=== PATIENT | female | born 1950 | race Caucasian/White ===

== ENCOUNTER 2020-03-19 17:05 | Emergency (ER) | payer MEDICARE, OTHER ==
[2020-03-19 17:20] VITALS: PULSE 68
--- NOTE | 2020-03-19 17:20 | ERPHSYRPT ---
- History of Present Illness Time Seen by Provider: 03/19/20 17:20 Source: patient Exam Limitations: no limitations Physician History: This is a right-handed 69-year-old white female who was walking in a nearby park when she slipped on a rock and fell on her left outstretched hand. She has pain in her left wrist. She has no other complaints of injury or pain. Occurred: just prior to arrival Method of Injury: fell Quality: aching Severity of Pain-Max: mild Severity of Pain-Current: mild Extremities Pain Location: wrist: left Modifying Factors: Improves With: movement Associated Symptoms: none Allergies/Adverse Reactions: No Known Drug Allergies Allergy (Verified 03/19/20 17:21) Home Medications: Bisoprolol Fumarate 5 mg PO DAILY 03/19/20 [History] Pravastatin Sodium 40 mg PO DAILY 03/19/20 [History] Travel Risk - International Travel Have you traveled outside of the country in past 3 weeks: No - Coronavirus Screening Are you exhibiting any of the following symptoms?: No Close contact with a COVID-19 positive Pt in past 14-21 Days: No - Review of Systems Constitutional: No Symptoms Eyes: No Symptoms Ears, Nose, & Throat: No Symptoms Respiratory: No Symptoms Cardiac: No Symptoms Abdominal/Gastrointestinal: No Symptoms Genitourinary Symptoms: No Symptoms Musculoskeletal: Fall, Injury (Left wrist) Skin: No Symptoms Neurological: No Symptoms Psychological: No Symptoms Endocrine: No Symptoms Hematologic/Lymphatic: No Symptoms Immunological/Allergic: No Symptoms All Other Systems: Reviewed and Negative - Past Medical History Pertinent Past Medical History: Yes - Past Surgical History Past Surgical History: Yes - Nursing Vital Signs Nursing Vital Signs: Initial Vital Signs Temperature 98.2 F 03/19/20 17:14 Pulse Rate 68 03/19/20 17:14 Respiratory Rate 20 03/19/20 17:14 Blood Pressure 138/74 03/19/20 17:14 O2 Sat by Pulse Oximetry 99 03/19/20 17:14 Pain Scale Pain Intensity 3 - Physical Exam General Appearance: no apparent distress, alert, anxiety Eyes, Ears, Nose, Throat Exam: normal ENT inspection, moist mucous membranes Neck Exam: normal inspection, non-tender, supple, full range of motion Cardiovascular/Respiratory Exam: chest non-tender, no respiratory distress Abdominal Exam: non-tender Back Exam: normal inspection, normal range of motion, No CVA tenderness, No vertebral tenderness Shoulder Exam: normal inspection, non-tender, no evidence of injury, normal ROM Elbow/Forearm Exam: normal inspection, non-tender, no evidence of injury, normal ROM Wrist Exam: bone tenderness, limited ROM, soft tissue tenderness Hand Exam: normal inspection, non-tender, no evidence of injury, normal ROM Neuro/Tendon Exam: normal sensation, normal motor functions, normal tendon functions, responds to pain, no evidence tendon injury Mental Status Exam: alert, oriented x 3, cooperative Skin Exam: normal color, warm, dry SpO2 Interpretation: normal O2 Delivery: Room Air Procedures - Splinting Location of Splint: Left, Wrist Type of Splint: Orthoglass Short Arm Splint Splint Applied By: ED Nurse Pre-Proc Neuro Vasc Exam: normal Post-Proc Neuro Vasc Exam: neurovascular intact, unchanged from pre-exam - Course Nursing assessment & vital signs reviewed: Yes Ordered Tests: Active Orders 24 hr Category Date Time Status WRIST (MIN 3 VIEWS) Stat Exams 03/19/20 17:33 Ordered - Progress Progress: improved, pain not gone completely, re-examined Progress Note: 03/19/20 17:46 X-ray of left wrist reveals a nondisplaced distal radius fracture. Counseled pt/family regarding: diagnosis, need for follow-up, rad results - Departure Departure Disposition: Home Clinical Impression: Distal radius fracture, left Condition: Stable Critical Care Time: No Referrals: NABIL TITUS LABORATORY TECHNOLOGIST [Primary Care Provider] - Additional Instructions: Ice pack to left wrist 3 times a day. Follow-up tomorrow morning at 8:00 at the [facility] orthopedic clinic. Use Tylenol and ibuprofen for pain.
[2020-03-19 18:22] VITALS: BP 134/70; O2SAT 98
--- NOTE | 2020-03-20 08:48 | XRAY ---
Indication: Pain following fall. Comparison: None 3 view left wrist demonstrates nondisplaced cortical fracture distal metadiaphysis radius with soft tissue swelling. Query additional nondisplaced ulnar styloid tip fracture. Elsewhere osteopenia and moderate degenerative changes 1st metacarpal multangular articulation. Comment: No electronic note of findings by the interpreting ER clinician. Telephone report was given to Dr. Conley in the ER at 0837 hrs. on March 20, 2020.
== END 2020-03-19 18:30 | disposition home or self-care (01) ==
LOC: ED 17:05
DX: S52.502A Unspecified fracture of the lower end of left radius, initial encounter for closed fracture (principal); W01.198A Fall on same level from slipping, tripping and stumbling with subsequent striking against other object, initial encounter; Y93.89 Activity, other specified; Y92.9 Unspecified place or not applicable
CPT/HCPCS: 29126; 73110; 99283

== ENCOUNTER 2021-10-22 04:51 | Emergency (ER) | payer MEDICARE, OTHER ==
--- NOTE | 2021-10-22 05:10 | ERPHSYRPT ---
- History of Present Illness Source: patient Exam Limitations: no limitations Timing/Duration: week(s) (1) Activities at Onset: none Quality: other (No chest pain but palpitations) Severity of Pain-Max: none Severity of Pain-Current: none Nitro Today/Relief: no nitro taken today Aspirin Treatment Today: 81 mg x 1, provided at home Associated Symptoms: shortness of breath (Mild), other (Palpitations) Hx Tetanus, Diphtheria Vaccination/Date Given: No Hx Influenza Vaccination/Date Given: No Hx Pneumococcal Vaccination/Date Given: Yes <BAL LEE - Last Filed: 10/22/21 06:46> <ZARINA CONLEY - Last Filed: 10/22/21 08:43> - History of Present Illness Time Seen by Provider: 10/22/21 05:10 Physician History: This is a 71-year-old female who presents with complaint of palpitations and shortness of breath intermittently over the last week. She sees capacity planner Dr. Lind and the capacity planner is aware of her symptoms. It does not appear as though the capacity planner is aware of her heart rate being so high. Patient has an appointment to see her capacity planner tomorrow. She is not on any anticoagulation therapy. She was on bisoprolol but told to stop this medication secondary to her low blood pressure a few days ago. Patient has a history of cardiomyopathy and congestive heart failure. She tried coughing. Upon arrival to the emergency department carotid massage was attempted. This did not help lower her heart rate. Patient states that she is felt the same symptoms all week but she felt pretty good this morning. Patient is not the best historian. She is very forgetful (BAL LEE) Allergies/Adverse Reactions: No Known Drug Allergies Allergy (Verified 10/22/21 05:37) Home Medications: Bisoprolol Fumarate 5 mg PO DAILY 03/19/20 [History] Pravastatin Sodium 40 mg PO DAILY 03/19/20 [History] Aspirin EC 81 mg [Ecotrin 81 mg] 81 mg PO DAILY 10/22/21 [History] Travel Risk - International Travel Have you traveled outside of the country in past 3 weeks: No - Coronavirus Screening Are you exhibiting any of the following symptoms?: No Close contact with a COVID-19 positive Pt in past 14-21 Days: No <BAL LEE - Last Filed: 10/22/21 06:46> - Review of Systems Constitutional: No Symptoms Eyes: No Symptoms Ears, Nose, & Throat: No Symptoms Respiratory: Dyspnea (Mild) Cardiac: Palpitations (Rapid heart rate) Abdominal/Gastrointestinal: No Symptoms Genitourinary Symptoms: No Symptoms Musculoskeletal: No Symptoms Skin: No Symptoms Neurological: No Symptoms Psychological: No Symptoms Endocrine: No Symptoms Hematologic/Lymphatic: No Symptoms Immunological/Allergic: No Symptoms All Other Systems: Reviewed and Negative <BAL LEE - Last Filed: 10/22/21 06:46> - Past Medical History Pertinent Past Medical History: Yes Neurological History: No Pertinent History Cardiac History: Congestive Heart Failure Respiratory History: No Pertinent History Endocrine Medical History: No Pertinent History Musculoskeletal History: Osteoarthritis GI Medical History: No Pertinent History History: No Pertinent History Psycho-Social History: No Pertinent History Female Reproductive Disorders: No Pertinent History Other Medical History: PREVIOUS NECK PAIN THAT SELF RESOLVED, CARDIOMYOPYTHIA, CHEMOTHERAPY, BREAST CA IN 1993, ROTATOR CUFF REPAIR ON THE R SIDE. - Past Surgical History Past Surgical History: Yes Other Surgical History: masectomy left. reduction of right breast. open reduction of left ankle - Social History Smoking Status: Never smoker Exposure to second hand smoke: Yes Drug Use: none Patient Lives Alone: No <BAL LEE - Last Filed: 10/22/21 06:46> - Physical Exam General Appearance: no apparent distress, alert, anxiety Eye Exam: PERRL/EOMI, eyes nml inspection Ears, Nose, Throat Exam: normal ENT inspection, moist mucous membranes Neck Exam: normal inspection, non-tender, supple, full range of motion Respiratory Exam: normal breath sounds, lungs clear, airway intact, No chest tenderness, No respiratory distress Cardiovascular Exam: irregular Gastrointestinal/Abdomen Exam: soft, normal bowel sounds, No tenderness Pelvic Exam: not done Rectal Exam: not done Back Exam: normal inspection, normal range of motion, No CVA tenderness, No vertebral tenderness Extremity Exam: normal inspection, normal range of motion, pelvis stable Neurologic Exam: alert, oriented x 3, cooperative, sheeter waxer operator II-XII nml as tested, normal mood/affect, nml cerebellar function, nml station & gait, sensation nml Skin Exam: normal color, warm, dry Lymphatic Exam: No adenopathy SpO2 Interpretation: normal O2 Delivery: Room Air <BAL LEE - Last Filed: 10/22/21 06:46> - Physical Exam SpO2: 100 <ZARINA CONLEY - Last Filed: 10/22/21 08:43> - Nursing Vital Signs Nursing Vital Signs: Initial Vital Signs Temperature 97.4 F 10/22/21 04:54 Pulse Rate 178 H 10/22/21 04:54 Respiratory Rate 18 10/22/21 04:54 Blood Pressure 97/76 10/22/21 04:54 O2 Sat by Pulse Oximetry 100 10/22/21 04:54 Pain Scale Pain Intensity 0 - Course Nursing assessment & vital signs reviewed: Yes EKG Interpreted by Me: RATE (198), A-fib, Non-specific ST Changes, Other (No acute ischemic changes on this EKG. There are no comparison EKGs.) <BAL LEE - Last Filed: 10/22/21 06:46> - CT Exams Chest CT Interpretation: Tele-radiologist Report (No pulmonary embolus. Linear atelectasis and/or fibrosis. Possible cardiac dysfunction. Cholecystectomy. Right calcified granuloma seen left lower lobe.) <ZARINA CONLEY - Last Filed: 10/22/21 08:43> Ordered Tests: Active Orders 24 hr Category Date Time Status Neonatologist STAT Care 10/22/21 05:12 Active Cath for Residual-In & Out STAT Care 10/22/21 05:12 Active EKG-ER Only STAT Care 10/22/21 05:11 Active IV Insertion STAT Care 10/22/21 05:11 Active Pulse Oximetry (ED) STAT Care 10/22/21 05:11 Active CHEST WITH CONTRAST [CT] Stat Exams 10/22/21 06:28 Taken CBC W DIFF Stat Lab 10/22/21 05:20 Completed CMP Stat Lab 10/22/21 05:15 Completed D-DIMER QUANTITATIVE Stat Lab 10/22/21 05:20 Completed MAGNESIUM Stat Lab 10/22/21 05:20 Completed NT PRO BNP Stat Lab 10/22/21 05:20 Completed TROPONIN Q3H Lab 10/22/21 05:20 Completed TROPONIN Q3H Lab 10/22/21 08:15 Ordered TROPONIN Q3H Lab 10/22/21 11:15 Ordered TROPONIN Q3H Lab 10/22/21 14:15 Ordered TROPONIN Q3H Lab 10/22/21 17:15 Ordered UA W/RFX CULTURE Stat Lab 10/22/21 05:58 Completed Medication Summary Generic Name Dose Route Start Last Admin Trade Name Freq PRN Reason Stop Dose Admin Diltiazem HCl 100 mls @ 5 mls/hr 10/22/21 05:28 10/22/21 06:59 Cardizem Drip 100 Mg/100 Ml D5w IV 11/21/21 05:27 10 mg/hr .Q20H PRN 10 mls/hr HEART RATE/ A-FIB Titration Protocol 5 MG/HR Discontinued Medications Generic Name Dose Route Start Last Admin Trade Name Freq PRN Reason Stop Dose Admin Aspirin 243 mg 10/22/21 05:28 10/22/21 05:34 Aspirin 81 Mg Tab.Chew PO 10/22/21 05:29 243 mg STAT ONE Administration Aspirin Confirm 10/22/21 05:33 Aspirin 81 Mg Tab.Chew Administered 10/22/21 05:34 Dose 243 mg .ROUTE .STK-MED ONE Diltiazem HCl 25 mg 10/22/21 05:11 10/22/21 05:15 Diltiazem Hcl Iv 5 Mg/Ml Vial IV 10/22/21 05:12 25 mg STAT ONE Administration Diltiazem HCl Confirm 10/22/21 05:15 Diltiazem Hcl Iv 5 Mg/Ml Vial Administered 10/22/21 05:16 Dose 50 mg IV .STK-MED ONE Diltiazem HCl 20 mg 10/22/21 06:06 10/22/21 06:07 Diltiazem Hcl Iv 5 Mg/Ml Vial IV 10/22/21 06:07 20 mg STAT ONE Administration Enoxaparin Sodium 80 mg 10/22/21 05:28 10/22/21 05:35 Enoxaparin Sodium 80 Mg/0.8 Ml Syringe SQ 10/22/21 05:29 80 mg STAT ONE Administration Enoxaparin Sodium Confirm 10/22/21 05:33 Enoxaparin Sodium 80 Mg/0.8 Ml Syringe Administered 10/22/21 05:34 Dose 80 mg SQ .STK-MED ONE Furosemide 20 mg 10/22/21 06:42 Furosemide 20 Mg/Vial IV 10/22/21 06:43 STAT ONE Sodium Chloride Confirm 10/22/21 05:21 Sodium Chloride 0.9% 1000 Ml Administered 10/22/21 05:22 Dose 1,000 mls @ ud .ROUTE .STK-MED ONE Metoprolol Tartrate 2.5 mg 10/22/21 06:03 10/22/21 06:35 Metoprolol Tartrate 5 Mg/5 Ml Injection IV 10/22/21 06:04 2.5 mg STAT ONE Administration Metoprolol Tartrate Confirm 10/22/21 06:03 Metoprolol Tartrate 5 Mg/5 Ml Injection Administered 10/22/21 06:04 Dose 5 mg IV .STK-MED ONE Lab/Rad Data: Laboratory Result Diagrams 10/22/21 05:20 10/22/21 05:15 Laboratory Results 10/22/21 10/22/21 10/22/21 Range/Units 05:58 05:20 05:20 WBC (4.0-10.5) K/mm3 RBC (4.1-5.4) M/mm3 Hgb (12.0-16.0) gm/dl Hct (35-47) % MCV (78-100) fl MCH (26-32) pg MCHC (32-36) g/dl RDW (11.5-14.0) % Plt Count (150-450) K/mm3 MPV (7.5-11.0) fl Gran % (36.0-66.0) % Eos # (Auto) (0-0.5) Absolute Lymphs (auto) (1.0-4.6) Absolute Monos (auto) (0.0-1.3) Lymphocytes % (24.0-44.0) % Monocytes % (0.0-12.0) % Eosinophils % (0.00-5.0) % Basophils % (0.0-0.4) % Absolute Granulocytes (1.4-6.9) Basophils # (0-0.4) D-Dimer 1181 H* (215-500) ng/mL Sodium (137-145) mmol/L Potassium (3.5-5.1) mmol/L Chloride (98-107) mmol/L Carbon Dioxide (22-30) mmol/L Anion Gap (5-15) MEQ/L BUN (7-17) mg/dL Creatinine (0.52-1.04) mg/dL Estimated GFR ML/MIN Glucose (74-106) mg/dL Calcium (8.4-10.2) mg/dL Magnesium (1.6-2.3) mg/dL Total Bilirubin (0.2-1.3) mg/dL AST (14-36) U/L ALT (0-35) U/L Alkaline Phosphatase (38-126) U/L Troponin I < 0.012 (0.000-0.034) ng/mL NT-Pro-B Natriuret Pep (0-900) pg/mL Serum Total Protein (6.3-8.2) g/dL Albumin (3.5-5.0) g/dL Urinalys Dipstick Clnc MAIN LAB Urine Color YELLOW (YELLOW) Urine Appearance CLEAR (CLEAR) Urine pH 7.0 (5-6) Ur Specific Daisy 1.010 (1.005-1.025) POC Urine Protein Conf NEGATIVE (Negative) Urine Ketones NEGATIVE (NEGATIVE) Urine Nitrite NEGATIVE (NEGATIVE) Urine Bilirubin NEGATIVE (NEGATIVE) Urine Urobilinogen 0.2 (0-1) mg/dL Urine Leukocytes NEGATIVE (NEGATIVE) Urine WBC (Auto) NONE (0-5) /HPF Urine RBC (Auto) NONE (0-2) /HPF U Epithel Cells (Auto) NONE (FEW) /HPF Urine Bacteria (Auto) NONE (NEGATIVE) /HPF Urine RBC NEGATIVE (0-5) Darren/ul Ur Culture Indicated? NO Urine Glucose NEGATIVE (NEGATIVE) mg/dL 10/22/21 10/22/21 10/22/21 Range/Units 05:20 05:20 05:15 WBC 7.3 (4.0-10.5) K/mm3 RBC 3.37 L (4.1-5.4) M/mm3 Hgb 12.0 (12.0-16.0) gm/dl Hct 36.4 (35-47) % MCV 108.0 H (78-100) fl MCH 35.6 H (26-32) pg MCHC 33.0 (32-36) g/dl RDW 13.5 (11.5-14.0) % Plt Count 340 (150-450) K/mm3 MPV 8.7 (7.5-11.0) fl Gran % 56.6 (36.0-66.0) % Eos # (Auto) 0.15 (0-0.5) Absolute Lymphs (auto) 2.18 (1.0-4.6) Absolute Monos (auto) 0.79 (0.0-1.3) Lymphocytes % 30.1 (24.0-44.0) % Monocytes % 10.9 (0.0-12.0) % Eosinophils % 2.1 (0.00-5.0) % Basophils % 0.3 (0.0-0.4) % Absolute Granulocytes 4.11 (1.4-6.9) Basophils # 0.02 (0-0.4) D-Dimer (215-500) ng/mL Sodium 136 L (137-145) mmol/L Potassium 4.2 (3.5-5.1) mmol/L Chloride 105 (98-107) mmol/L Carbon Dioxide 21 L (22-30) mmol/L Anion Gap 14.5 (5-15) MEQ/L BUN 15 (7-17) mg/dL Creatinine 0.74 (0.52-1.04) mg/dL Estimated GFR > 60.0 ML/MIN Glucose 116 H (74-106) mg/dL Calcium 9.4 (8.4-10.2) mg/dL Magnesium 1.8 (1.6-2.3) mg/dL Total Bilirubin 0.40 (0.2-1.3) mg/dL AST 47 H (14-36) U/L ALT 72 H (0-35) U/L Alkaline Phosphatase 149 H (38-126) U/L Troponin I (0.000-0.034) ng/mL NT-Pro-B Natriuret Pep 2970 H (0-900) pg/mL Serum Total Protein 6.6 (6.3-8.2) g/dL Albumin 3.8 (3.5-5.0) g/dL Urinalys Dipstick Clnc Urine Color (YELLOW) Urine Appearance (CLEAR) Urine pH (5-6) Ur Specific Daisy (1.005-1.025) POC Urine Protein Conf (Negative) Urine Ketones (NEGATIVE) Urine Nitrite (NEGATIVE) Urine Bilirubin (NEGATIVE) Urine Urobilinogen (0-1) mg/dL Urine Leukocytes (NEGATIVE) Urine WBC (Auto) (0-5) /HPF Urine RBC (Auto) (0-2) /HPF U Epithel Cells (Auto) (FEW) /HPF Urine Bacteria (Auto) (NEGATIVE) /HPF Urine RBC (0-5) Darren/ul Ur Culture Indicated? Urine Glucose (NEGATIVE) mg/dL - Progress Progress: improved, re-examined Air Movement: good Blood Culture(s) Obtained: No Antibiotics given: No Counseled pt/family regarding: lab results, diagnosis, need for follow-up <BAL LEE - Last Filed: 10/22/21 06:46> <ZARINA CONLEY - Last Filed: 10/22/21 08:43> - Progress Progress Note: 10/22/21 06:33 Second twelve-lead EKG performed on 10/22/2021 at 629 shows heart rate of 100. Patient still is in atrial fibrillation. There is nonspecific T wave abnormalit ies. No acute ischemic changes on this EKG. 10/22/21 06:46 Patient transfer of care to Dr. Zarina Conley at shift change. He will make final disposition after following up on the remainder of studies including CTA of the chest. He was made aware of the patient prefers to [facility] if possible. Dr. Lind is her capacity planner. He accepts the patient in transfer at shift change. (BAL LEE) Patient initially evaluated and treated by Dr. Lee. I assumed care at change of shift at approximately 7 AM. At that point atrial fibrillation had already resolved. Patient on a Cardizem drip. Patient reassessed. She appears to be in good spirits. Patient has no chest pain. Heart rate now 72. MAP of 78. Initial troponin negative. BNP elevated. Patient received a low dose diuretic/furosemide 20 mg. D-dimer positive. CTA chest negative for PE. Patient requested transfer to [facility]. However there is a 2-day wait list. Dr. Waldrop is also on staff at [facility]. Patient agreed to transfer to [facility]. I discussed the case with Dr. Michael who accepts transfer. Plan of care discussed with patient. She agrees to transfer to [facility] for further evaluation and treatment. Vital stable. Patient appears to have converted. Patient displaying normal sinus rhythm on last EKG. We are currently awaiting ground transport to [facility]. 10/22/21 08:38 Portions of this note were created with voice recognition technology. There may be grammatical, spelling, punctuation or sound alike errors (ZARINA CONLEY) - Departure Departure Disposition: Transfer Critical Care Time: Yes Critical Care Time(excluding separately billable procedures): Critical 30-74 mins (40 minutes) <BAL LEE - Last Filed: 10/22/21 06:46> <ZARINA CONLEY - Last Filed: 10/22/21 08:43> - Departure Clinical Impression: Atrial fibrillation with RVR, Elevated d-dimer, Hypotension, Elevated brain natriuretic peptide (BNP) level, Lung nodule Condition: Fair Referrals: NABIL TITUS PIG MACHINE SUPERVISOR [Primary Care Provider] - Follow up/PCP as directed
[2021-10-22] MEDS ORDERED: Cardizem IV 50 MG/10 ML IV ONE ×3 (05:11→06:06)
[2021-10-22] MEDS ORDERED: Sodium Chloride 0.9% 1000 ML 1,000 ML ONE (05:21)
[2021-10-22 05:27] LABS: Absolute Neutrophil Ct (ANC) 4.11 (1.4-6.9); Basophil (Absolute #) 0.02 (0-0.4); Eosinophil % 2.1 % (0.00-5.0); Eosinophil (Absolute #) 0.15 (0-0.5); Hematocrit 36.4 % (35-47); Lymphocyte (Absolute #) 2.18 (1.0-4.6); Lymphocytes % 30.1 % (24.0-44.0); Mean Corpuscular Hemoglobin 35.6 pg (26-32); Mean Platelet Volume 8.7 fl (7.5-11.0); Monocyte (Absolute #) 0.79 (0.0-1.3); Monocytes % 10.9 % (0.0-12.0); Neutrophil % 56.6 % (36.0-66.0); Platelet Count 340 K/mm3 (150-450); Red Blood Count 3.37 M/mm3 (4.1-5.4); Red Cell Distribution Width 13.5 % (11.5-14.0); White Blood Count 7.3 K/mm3 (4.0-10.5)
[2021-10-22] MEDS ORDERED: CARDIZEM DRIP 100 MG/100 ML D5W 100 ML IV PRN (05:28)
[2021-10-22] MEDS ORDERED: BABY ASPIRIN 81 MG CHEW PO ONE (05:28)
[2021-10-22] MEDS ORDERED: ENOXAPARIN SODIUM SQ ONE ×2 (05:28→05:33)
[2021-10-22] MEDS ORDERED: BABY ASPIRIN 81 MG CHEW ONE (05:33)
[2021-10-22] MEDS ORDERED: CARDIZEM DRIP 100 MG/100 ML D5W 100 ML IV ONE (05:34)
[2021-10-22 05:50] LABS: MAGNESIUM 1.8 mg/dL (1.6-2.3)
[2021-10-22] MEDS ORDERED: LOPRESSOR 5 MG/5 ML INJECTION IV ONE ×2 (06:03)
[2021-10-22 06:13] LABS: ALBUMIN 3.8 g/dL (3.5-5.0); ALKALINE PHOSPHATASE 149 U/L (38-126); ANION GAP 14.5 MEQ/L (5-15); BLOOD UREA NITROGEN 15 mg/dL (7-17); CHLORIDE 105 mmol/L (98-107); Calcium 9.4 mg/dL (8.4-10.2); Carbon Dioxide 21 mmol/L (22-30); Creatinine 1 0.74 mg/dL (0.52-1.04); EST GLOMERULAR FILTRATION RATE > 60.0 ML/MIN; Glucose 116 mg/dL (74-106); Potassium 4.2 mmol/L (3.5-5.1); SGOT/AST 47 U/L (14-36); SGPT/ALT 72 U/L (0-35); SODIUM 136 mmol/L (137-145); Total Protein 6.6 g/dL (6.3-8.2)
[2021-10-22] MEDS ORDERED: Lasix 20 MG/2 ML IV ONE (06:42)
[2021-10-22 06:48] LABS: Appearance CLEAR (CLEAR); Bilirubin NEGATIVE (NEGATIVE); Dipstick done @ ? MAIN LAB; Glucose NEGATIVE (NEGATIVE); Ketones NEGATIVE (NEGATIVE); Nitrite NEGATIVE (NEGATIVE); Protein,Urine Dip NEGATIVE (Negative); RBC NEGATIVE Ery/ul (0-5); Urobilinogen 0.2 mg/dL (0-1)
[2021-10-22 06:51] LABS: Urine Cultured Indicated? NO
[2021-10-22 08:06] VITALS: BP 101/72; PULSE 68
[2021-10-22] MEDS ORDERED: Lasix 40 MG/4 ML ONE (08:31)
[2021-10-22 08:44] VITALS: O2SAT 100
--- NOTE | 2021-10-23 07:16 | XRAY ---
Exam: CT of the chest with IV contrast per PE protocol from 10/22/2021. CTDI: 23.68 mGy Comparison: Two-view chest from 10/26/2019. Indication: History of left breast cancer; heart palpitations, elevated d-dimer of 1181, shortness of breath. Technique: Post-IV contrast axial images were obtained through the chest during automated injection of 80 cc of Isovue-370 contrast material using the PE protocol. Findings: The pulmonary arteries enhance well revealing no filling defects to suggest pulmonary emboli. The ascending aorta is borderline aneurysmal measuring 4.0 cm in greatest diameter on axial image #36. There is no evidence of thoracic aortic dissection seen. Mild atherosclerotic vascular calcification is seen within the descending thoracic aorta. The heart size appears within normal limits. No abnormal pericardial effusion is seen. I note some reflux of contrast into the inferior vena cava and hepatic veins. This can sometimes be seen with cardiac dysfunction, or heart failure. However, I see no vascular congestion or pleural fluid. Correlate clinically. Minimal/mild scattered linear atelectasis/scarring is seen within each lung field. I see no pneumonic infiltrates or suspicious soft tissue lung nodules. A surgical clips consistent with prior cholecystectomy is seen within the right upper quadrant of the abdomen. The adrenal glands appear within normal limits. A tortuous, calcified splenic artery is seen within the left upper quadrant. The patient is evidently status post left mastectomy with placement of a left breast implant. Mild diffuse thoracic spondylosis is seen. There is subtle deformity of the body of the sternum which is nonspecific, but could be due to an old healed fracture deformity. Correlate with traumatic history. Impression: 1. I see no evidence of acute pulmonary embolus. 2. Borderline aneurysmal distention of the ascending aorta which measures 4 cm in diameter. No thoracic aortic dissection is seen. 3. I note some reflux of the IV contrast into the inferior vena cava and hepatic veins. This can sometimes be seen with cardiac dysfunction, or heart failure. Correlate clinically. 4. Mild scattered bilateral linear atelectasis and/or fibrosis. No air space infiltrates or other active lung disease is seen. 5. A left breast prosthesis is seen. I also see evidence of prior cholecystectomy.
== END 2021-10-22 09:02 | disposition short-term general hospital (02) ==
LOC: ED 04:51
DX: I48.20 Chronic atrial fibrillation, unspecified (principal); I11.0 Hypertensive heart disease with heart failure; I50.9 Heart failure, unspecified; R79.1 Abnormal coagulation profile; R79.89 Other specified abnormal findings of blood chemistry; R91.1 Solitary pulmonary nodule; R00.2 Palpitations; R06.02 Shortness of breath; Z79.899 Other long term (current) drug therapy
CPT/HCPCS: 36000; 36415; 51701; 71260; 80053; 81015; 83735; 83880; 84484; 85025; 85379; 93005; 93041; 94760; 96365; 96366; 96372; 96374; 96375; 96376; 99285; 99291; J1650; J1940; A9270-GY

== ENCOUNTER 2021-10-25 23:39 | Emergency (ER) | payer MEDICARE, OTHER ==
--- NOTE | 2021-10-26 00:21 | ERPHSYRPT ---
- History of Present Illness Time Seen by Provider: 10/26/21 00:18 Source: patient, family Exam Limitations: no limitations Physician History: This is a 71-year-old white female patient who I saw on 10/22/2021 and was diagnosed with atrial fibrillation and RVR. She was sent to [facility] where she saw fur buyer Dr. Lind who sent her home with prescriptions of amiodarone, metoprolol, isosorbide dinitrate. She then returned the day after she was discharged from that facility because she was back in the atrial fibrillation. They changed her medication around and patient was again sent home. Yesterday and today patient has had nausea, vomiting and a severe headache. The office had called in some antiemetic promethazine for her. Patient still has not been eating or drinking well and has a headache and has been vomiting. She denies chest pain. She denies shortness of breath. Timing/Duration: yesterday Severity: moderate Associated Symptoms: nausea, vomiting, headaches Allergies/Adverse Reactions: No Known Drug Allergies Allergy (Verified 10/26/21 00:18) Home Medications: Bisoprolol Fumarate 5 mg PO DAILY 03/19/20 [History] Pravastatin Sodium 40 mg PO DAILY 03/19/20 [History] Aspirin EC 81 mg [Ecotrin 81 mg] 81 mg PO DAILY 10/22/21 [History] Amiodarone HCl 200 mg [Cordarone 200 MG] 200 mg PO DAILY 10/26/21 [History] Isosorbide Mononitrate 30 mg [Imdur 30 MG] 30 mg PO DAILY 10/26/21 [Hi story] Metoprolol Tartrate 25 mg [Lopressor 25MG Tab] 25 mg PO DAILY 10/26/21 [History] Promethazine HCl 12.5 mg PO PRN 10/26/21 [History] Hx Tetanus, Diphtheria Vaccination/Date Given: No Hx Influenza Vaccination/Date Given: No Hx Pneumococcal Vaccination/Date Given: Yes Travel Risk - International Travel Have you traveled outside of the country in past 3 weeks: No - Coronavirus Screening Are you exhibiting any of the following symptoms?: No Close contact with a COVID-19 positive Pt in past 14-21 Days: No - Vaccine Status Have you recieved a Covid-19 vaccination: Yes 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: [employer] - Vaccination Dates Date of 2cond Vaccination (if applicable): 2020 - Review of Systems Constitutional: No Symptoms Eyes: No Symptoms Ears, Nose, & Throat: No Symptoms Respiratory: No Symptoms Cardiac: No Symptoms Abdominal/Gastrointestinal: Nausea, Vomiting Genitourinary Symptoms: No Symptoms Musculoskeletal: No Symptoms Skin: No Symptoms Neurological: No Symptoms, Headache Psychological: No Symptoms Endocrine: No Symptoms Hematologic/Lymphatic: No Symptoms Immunological/Allergic: No Symptoms All Other Systems: Reviewed and Negative - Past Medical History Pertinent Past Medical History: Yes Neurological History: No Pertinent History Cardiac History: Congestive Heart Failure Respiratory History: No Pertinent History Endocrine Medical History: No Pertinent History Musculoskeletal History: Osteoarthritis GI Medical History: No Pertinent History History: No Pertinent History Psycho-Social History: No Pertinent History Female Reproductive Disorders: No Pertinent History Other Medical History: PREVIOUS NECK PAIN THAT SELF RESOLVED, CARDIOMYOPYTHIA, CHEMOTHERAPY, BREAST CA IN 1993, ROTATOR CUFF REPAIR ON THE R SIDE. - Past Surgical History Past Surgical History: Yes Other Surgical History: masectomy left. reduction of right breast. open reduction of left ankle - Social History Smoking Status: Never smoker Exposure to second hand smoke: Yes Drug Use: none Patient Lives Alone: No - Nursing Vital Signs Nursing Vital Signs: Initial Vital Signs Temperature 98.0 F 10/26/21 00:20 Pulse Rate 85 10/26/21 00:20 Respiratory Rate 16 10/26/21 00:20 Blood Pressure 154/98 10/26/21 00:20 O2 Sat by Pulse Oximetry 98 10/26/21 00:20 Pain Scale Pain Intensity 8 - Physical Exam General Appearance: no apparent distress, alert, anxiety Eye Exam: PERRL/EOMI, eyes nml inspection Ears, Nose, Throat Exam: normal ENT inspection, moist mucous membranes Neck Exam: normal inspection, non-tender, supple, full range of motion Respiratory Exam: normal breath sounds, lungs clear, airway intact, No chest tenderness, No respiratory distress Cardiovascular Exam: regular rate/rhythm, normal heart sounds, normal peripheral pulses Gastrointestinal/Abdomen Exam: soft, normal bowel sounds, No tenderness Pelvic Exam: not done Rectal Exam: not done Back Exam: normal inspection, normal range of motion, No CVA tenderness, No vertebral tenderness Extremity Exam: normal inspection, normal range of motion, pelvis stable Neurologic Exam: alert, oriented x 3, cooperative, 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, normal mood/affect, nml cerebellar function, nml station & gait, sensation nml Skin Exam: normal color, warm, dry Lymphatic Exam: adenopathy SpO2 Interpretation: normal O2 Delivery: Room Air - Course Nursing assessment & vital signs reviewed: Yes EKG Interpreted by Me: RATE (65), Sinus Rhythm, Right [place] Deviation, NORMAL INTERVALS, NORMAL QRS, Other (No acute ischemic changes) Ordered Tests: Active Orders 24 hr Category Date Time Status Talent Acquisition Consultant STAT Care 10/26/21 00:22 Active EKG-ER Only STAT Care 10/26/21 00:21 Active IV Insertion STAT Care 10/26/21 00:21 Active Pulse Oximetry (ED) STAT Care 10/26/21 00:21 Active HEAD WITHOUT CONTRAST [CT] Stat Exams 10/26/21 00:23 Taken CBC W DIFF Stat Lab 10/26/21 00:30 Completed CMP Stat Lab 10/26/21 00:30 Completed MAGNESIUM Stat Lab 10/26/21 00:30 Completed NT PRO BNP Stat Lab 10/26/21 00:30 Completed TROPONIN Q3H Lab 10/26/21 00:30 Completed TROPONIN Q3H Lab 10/26/21 03:30 Ordered TROPONIN Q3H Lab 10/26/21 06:30 Ordered TROPONIN Q3H Lab 10/26/21 09:30 Ordered TROPONIN Q3H Lab 10/26/21 12:30 Ordered UA W/RFX CULTURE Stat Lab 10/26/21 00:34 Completed Medication Summary Generic Name Dose Route Start Last Admin Trade Name Freq PRN Reason Stop Dose Admin Sodium Chloride 1,000 mls @ 100 mls/hr 10/26/21 00:30 10/26/21 00:39 Sodium Chloride 0.9% 1000 Ml IV 11/25/21 00:29 100 mls/hr .Q10H J CARLOS Administration Discontinued Medications Generic Name Dose Route Start Last Admin Trade Name Freq PRN Reason Stop Dose Admin Furosemide 40 mg 10/26/21 01:56 Furosemide 40 Mg/4 Ml Vial IV 10/26/21 01:57 STAT ONE Lab/Rad Data: Laboratory Result Diagrams 10/26/21 00:30 10/26/21 00:30 Laboratory Results 10/26/21 10/26/21 10/26/21 Range/Units 00:34 00:30 00:30 WBC (4.0-10.5) K/mm3 RBC (4.1-5.4) M/mm3 Hgb (12.0-16.0) gm/dl Hct (35-47) % MCV (78-100) fl MCH (26-32) pg MCHC (32-36) g/dl RDW (11.5-14.0) % Plt Count (150-450) K/mm3 MPV (7.5-11.0) fl Gran % (36.0-66.0) % Eos # (Auto) (0-0.5) Absolute Lymphs (auto) (1.0-4.6) Absolute Monos (auto) (0.0-1.3) Lymphocytes % (24.0-44.0) % Monocytes % (0.0-12.0) % Eosinophils % (0.00-5.0) % Basophils % (0.0-0.4) % Absolute Granulocytes (1.4-6.9) Basophils # (0-0.4) Sodium 134 L (137-145) mmol/L Potassium 3.9 (3.5-5.1) mmol/L Chloride 100 (98-107) mmol/L Carbon Dioxide 21 L (22-30) mmol/L Anion Gap 17.1 H (5-15) MEQ/L BUN 13 (7-17) mg/dL Creatinine 0.69 (0.52-1.04) mg/dL Estimated GFR > 60.0 ML/MIN Glucose 109 H (74-106) mg/dL Calcium 9.1 (8.4-10.2) mg/dL Magnesium 1.8 (1.6-2.3) mg/dL Total Bilirubin 0.70 (0.2-1.3) mg/dL AST 41 H (14-36) U/L ALT 48 H (0-35) U/L Alkaline Phosphatase 118 (38-126) U/L Troponin I < 0.012 (0.000-0.034) ng/mL NT-Pro-B Natriuret Pep 4280 H (0-900) pg/mL Serum Total Protein 6.9 (6.3-8.2) g/dL Albumin 4.1 (3.5-5.0) g/dL Urinalys Dipstick Clnc MAIN LAB Urine Color YELLOW (YELLOW) Urine Appearance CLEAR (CLEAR) Urine pH 6.0 (5-6) Ur Specific [place] >=1.030 (1.005-1.025) POC Urine Protein Conf 30 (Negative) Urine Ketones MODERATE-40 (NEGATIVE) Urine Nitrite NEGATIVE (NEGATIVE) Urine Bilirubin SMALL (NEGATIVE) Urine Urobilinogen 0.2 (0-1) mg/dL Urine Leukocytes NEGATIVE (NEGATIVE) Urine WBC (Auto) 3-5 (0-5) /HPF Urine RBC (Auto) NONE (0-2) /HPF U Epithel Cells (Auto) NONE (FEW) /HPF Urine Bacteria (Auto) NONE SEEN (NEGATIVE) /HPF Urine RBC NEGATIVE (0-5) Darren/ul Urine Mucus (Auto) SLIGHT (NEGATIVE) /HPF Ur Culture Indicated? NO Urine Glucose NEGATIVE (NEGATIVE) mg/dL 10/26/21 Range/Units 00:30 WBC 7.2 (4.0-10.5) K/mm3 RBC 3.29 L (4.1-5.4) M/mm3 Hgb 11.7 L (12.0-16.0) gm/dl Hct 35.3 (35-47) % MCV 107.3 H (78-100) fl MCH 35.6 H (26-32) pg MCHC 33.1 (32-36) g/dl RDW 13.1 (11.5-14.0) % Plt Count 349 (150-450) K/mm3 MPV 8.6 (7.5-11.0) fl Gran % 70.3 H (36.0-66.0) % Eos # (Auto) 0.02 (0-0.5) Absolute Lymphs (auto) 1.50 (1.0-4.6) Absolute Monos (auto) 0.60 (0.0-1.3) Lymphocytes % 20.8 L (24.0-44.0) % Monocytes % 8.3 (0.0-12.0) % Eosinophils % 0.3 (0.00-5.0) % Basophils % 0.3 (0.0-0.4) % Absolute Granulocytes 5.06 (1.4-6.9) Basophils # 0.02 (0-0.4) Sodium (137-145) mmol/L Potassium (3.5-5.1) mmol/L Chloride (98-107) mmol/L Carbon Dioxide (22-30) mmol/L Anion Gap (5-15) MEQ/L BUN (7-17) mg/dL Creatinine (0.52-1.04) mg/dL Estimated GFR ML/MIN Glucose (74-106) mg/dL Calcium (8.4-10.2) mg/dL Magnesium (1.6-2.3) mg/dL Total Bilirubin (0.2-1.3) mg/dL AST (14-36) U/L ALT (0-35) U/L Alkaline Phosphatase (38-126) U/L Troponin I (0.000-0.034) ng/mL NT-Pro-B Natriuret Pep (0-900) pg/mL Serum Total Protein (6.3-8.2) g/dL Albumin (3.5-5.0) g/dL Urinalys Dipstick Clnc Urine Color (YELLOW) Urine Appearance (CLEAR) Urine pH (5-6) Ur Specific [place] (1.005-1.025) POC Urine Protein Conf (Negative) Urine Ketones (NEGATIVE) Urine Nitrite (NEGATIVE) Urine Bilirubin (NEGATIVE) Urine Urobilinogen (0-1) mg/dL Urine Leukocytes (NEGATIVE) Urine WBC (Auto) (0-5) /HPF Urine RBC (Auto) (0-2) /HPF U Epithel Cells (Auto) (FEW) /HPF Urine Bacteria (Auto) (NEGATIVE) /HPF Urine RBC (0-5) Darren/ul Urine Mucus (Auto) (NEGATIVE) /HPF Ur Culture Indicated? Urine Glucose (NEGATIVE) mg/dL - Progress Progress: improved Progress Note: 10/26/21 01:57 CAT scan of the head without contrast shows no acute intracranial pathology 10/26/21 02:20 Medical decision making: This patient is both dehydrated and has evidence of CHF. I believe her symptoms are secondary to the new isosorbide mononitrate that she has started. I am having her stop that medication. I am also going to try to balance rehydrating her and yet not fluid overloading her. We will give her bolus of a liter of fluid but also provide her with 40 mg of intravenous Lasix. Counseled pt/family regarding: lab results, diagnosis, rad results - Departure Departure Disposition: Home Clinical Impression: CHF (congestive heart failure), Dehydration, Medication reaction Condition: Stable Critical Care Time: No Referrals: NABIL TITUS, FILLER BLENDER [Primary Care Provider] - Follow up/PCP as directed Instructions: Heart Failure Additional Instructions: Stop your isosorbide dinitrate. Use your antinausea medicine as prescribed. Follow-up with your fur buyer later today for further evaluation and management. Drink plenty of clear liquids.
[2021-10-26] MEDS ORDERED: Sodium Chloride 0.9% 1000 ML 1,000 ML IV SCH (00:30)
[2021-10-26] MEDS ORDERED: Sodium Chloride 0.9% 1000 ML 1,000 ML ONE (00:35)
[2021-10-26 00:39] LABS: Absolute Neutrophil Ct (ANC) 5.06 (1.4-6.9); Basophil (Absolute #) 0.02 (0-0.4); Eosinophil % 0.3 % (0.00-5.0); Eosinophil (Absolute #) 0.02 (0-0.5); Hematocrit 35.3 % (35-47); Hemoglobin 11.7 gm/dl (12.0-16.0); Lymphocytes % 20.8 % (24.0-44.0); Mean Cell Volume 107.3 fl (78-100); Mean Corpuscular Hemoglobin 35.6 pg (26-32); Mean Corpuscular Hgb Concent. 33.1 g/dl (32-36); Mean Platelet Volume 8.6 fl (7.5-11.0); Monocytes % 8.3 % (0.0-12.0); Neutrophil % 70.3 % (36.0-66.0); Platelet Count 349 K/mm3 (150-450); Red Blood Count 3.29 M/mm3 (4.1-5.4); Red Cell Distribution Width 13.1 % (11.5-14.0); White Blood Count 7.2 K/mm3 (4.0-10.5)
[2021-10-26 00:40] LABS: Appearance CLEAR (CLEAR); Bilirubin SMALL (NEGATIVE); Dipstick done @ ? MAIN LAB; Glucose NEGATIVE (NEGATIVE); Ketones MODERATE-40 (NEGATIVE); Nitrite NEGATIVE (NEGATIVE); Protein,Urine Dip 30 (Negative); RBC NEGATIVE Ery/ul (0-5); Specific Gravity >=1.030 (1.005-1.025); Urobilinogen 0.2 mg/dL (0-1)
[2021-10-26 00:51] LABS: Mucus SLIGHT /HPF (NEGATIVE)
[2021-10-26 00:52] LABS: Bacteria NONE SEEN /HPF (NEGATIVE); Urine Cultured Indicated? NO
[2021-10-26 00:59] LABS: ALBUMIN 4.1 g/dL (3.5-5.0); ALKALINE PHOSPHATASE 118 U/L (38-126); ANION GAP 17.1 MEQ/L (5-15); BLOOD UREA NITROGEN 13 mg/dL (7-17); CHLORIDE 100 mmol/L (98-107); Calcium 9.1 mg/dL (8.4-10.2); Carbon Dioxide 21 mmol/L (22-30); Creatinine 1 0.69 mg/dL (0.52-1.04); EST GLOMERULAR FILTRATION RATE > 60.0 ML/MIN; Glucose 109 mg/dL (74-106); MAGNESIUM 1.8 mg/dL (1.6-2.3); NT PRO BNP 4280 pg/mL (0-900); Potassium 3.9 mmol/L (3.5-5.1); SGOT/AST 41 U/L (14-36); SGPT/ALT 48 U/L (0-35); SODIUM 134 mmol/L (137-145); Total Protein 6.9 g/dL (6.3-8.2)
[2021-10-26] MEDS ORDERED: Lasix 40 MG/4 ML IV ONE (01:56)
[2021-10-26] MEDS ORDERED: Lasix 40 MG/4 ML ONE (02:22)
[2021-10-26] MEDS ORDERED: TYLENOL 325 MG PO STA (03:42)
[2021-10-26] MEDS ORDERED: TYLENOL 325 MG ONE (03:44)
[2021-10-26 03:55] VITALS: BP 148/68; PULSE 72; O2SAT 95
--- NOTE | 2021-10-26 07:40 | XRAY ---
Indication: Severe headache 48 hours. Multiple contiguous axial images obtained through the head without contrast. Comparison: None Age-appropriate global atrophy and moderate periventricular degenerative micro-ischemia bilaterally. No acute intracranial hemorrhage, abnormal extra-axial fluid collection, or mass effect. Fourth ventricle is midline without hydrocephalus. Bony calvarium intact. Visualized paranasal sinuses and mastoid air cells are clear. Impression: Nonacute senile brain. Comment: Preliminary interpretation made by [facility]. No critical discrepancy.
== END 2021-10-26 03:59 | disposition home or self-care (01) ==
LOC: ED 23:39
DX: I50.9 Heart failure, unspecified (principal); T46.3X5A Adverse effect of coronary vasodilators, initial encounter; E86.0 Dehydration; R11.2 Nausea with vomiting, unspecified; R51.9 Headache, unspecified; Z79.899 Other long term (current) drug therapy
CPT/HCPCS: 36000; 36415; 70450; 80053; 81015; 83735; 83880; 84484; 85025; 93005; 93041; 94760; 96360; 96361; 96374; 99284; J1940; A9270-GY

== ENCOUNTER 2022-01-09 12:56 | Inpatient (IN) | payer MEDICARE, OTHER ==
[2022-01-09] MEDS ORDERED: Zofran 4 MG/2 ML VIAL IV ONE (13:00)
[2022-01-09] MEDS ORDERED: MORPHINE SULFATE 2 MG INJ IV ONE (13:00)
[2022-01-09] MEDS ORDERED: Sodium Chloride 0.9% 1000 ML 1,000 ML IV SCH (13:00)
[2022-01-09] MEDS ORDERED: MORPHINE SULFATE 2 MG INJ ONE (13:10)
[2022-01-09] MEDS ORDERED: Zofran 4 MG/2 ML VIAL ONE (13:10)
--- NOTE | 2022-01-09 13:31 | ERPHSYRPT ---
- History of Present Illness Time Seen by Provider: 01/09/22 13:29 Historian: patient Exam Limitations: no limitations Patient Subjective Stated Complaint: C/O weakness following colonoscopy yesterday. States still having some N/V today following the procedure. Patient thinks she is dehydrated. Triage Nursing Assessment: Patient brought into ED by ambulance. She is alert and oriented. Oral mucosa noted to be dry. Skin is dry and loose. Stomach is soft and flat. Patient denies abdominal pain. Physician History: Patient is a 71-year-old female presents to emergency department for evaluation of generalized weakness. Patient arrived to our ED via EMS. Patient states she had a colonoscopy yesterday. She has been vomiting since. Mild diffuse abdominal pain. Patient unable to tolerate p.o. Symptoms are progressive. No associated chest pain or shortness of breath. No trauma. No fever. Symptoms are moderate in intensity. No specific worsening improving factors. Patient states her mouth feels dry. She is thirsty. Patient unable to tolerate water. Patient requesting ice chips. Patient voices no other complaints or concerns at this time. Portions of this note were created with voice recognition technology. There may be grammatical, spelling, punctuation or sound alike errors Timing/Duration: yesterday Activities at Onset: none Quality: aching Abdominal Pain Onset Location: generalized abdomen Pain Radiation: no radiation Severity of Pain-Max: moderate Severity of Pain-Current: mild Modifying Factors: Improves With: nothing Associated Symptoms: vomiting (Generalized weakness), other (Dry mouth) Previous symptoms: no prior history Allergies/Adverse Reactions: No Known Drug Allergies Allergy (Verified 01/09/22 12:58) Home Medications: Bisoprolol Fumarate 5 mg PO DAILY 03/19/20 [History] Pravastatin Sodium 40 mg PO DAILY 03/19/20 [History] Aspirin EC 81 mg [Ecotrin 81 mg] 81 mg PO DAILY 10/22/21 [History] Amiodarone HCl 200 mg [Cordarone 200 MG] 200 mg PO DAILY 10/26/21 [History] Isosorbide Mononitrate 30 mg [Imdur 30 MG] 30 mg PO DAILY 10/26/21 [History] Metoprolol Tartrate 25 mg [Lopressor 25MG Tab] 25 mg PO DAILY 10/26/21 [History] Promethazine HCl 12.5 mg PO PRN 10/26/21 [History] Hx Tetanus, Diphtheria Vaccination/Date Given: Yes Hx Influenza Vaccination/Date Given: No Hx Pneumococcal Vaccination/Date Given: No Immunizations Up to Date: Yes Travel Risk - International Travel Have you traveled outside of the country in past 3 weeks: No - Coronavirus Screening Are you exhibiting any of the following symptoms?: Yes Symptoms: Vomiting/Diarrhea Close contact with a COVID-19 positive Pt in past 14-21 Days: No - Vaccine Status Have you recieved a Covid-19 vaccination: Yes [employer] - Vaccination Dates Date of 2cond Vaccination (if applicable): 2020 - Review of Systems Constitutional: No Symptoms, No Fever, No Chills Eyes: No Symptoms Ears, Nose, & Throat: No Symptoms Respiratory: No Symptoms, No Cough, No Dyspnea Cardiac: No Symptoms, No Chest Pain, No Edema, No Syncope Abdominal/Gastrointestinal: No Symptoms, No Abdominal Pain, No Nausea, No Vomiting, No Diarrhea Genitourinary Symptoms: No Symptoms, No Dysuria Musculoskeletal: No Symptoms, No Back Pain, No Neck Pain Skin: No Symptoms, No Rash Neurological: No Symptoms, No Dizziness, No Focal Weakness, No Sensory Changes Psychological: No Symptoms Endocrine: No Symptoms Hematologic/Lymphatic: No Symptoms Immunological/Allergic: No Symptoms All Other Systems: Reviewed and Negative - Past Medical History Pertinent Past Medical History: Yes Neurological History: No Pertinent History ENT History: No Pertinent History Cardiac History: Congestive Heart Failure Respiratory History: No Pertinent History Endocrine Medical History: No Pertinent History Musculoskeletal History: Osteoarthritis GI Medical History: Diverticulitis, Diverticulosis, Gallbladder Disease History: No Pertinent History Psycho-Social History: No Pertinent History Female Reproductive Disorders: Breast Cancer Other Medical History: CARDIOMYOPYTHIA, - Past Surgical History Past Surgical History: Yes Neuro Surgical History: No Pertinent History Cardiac: No Pertinent History Respiratory: No Pertinent History Gastrointestinal: Cholecystectomy Genitourinary: No Pertinent History Musculoskeletal: No Pertinent History Female Surgical History: No Pertinent History Other Surgical History: masectomy left, rotator cuff repain, reduction of right breast, open reduction of left ankle - Social History Smoking Status: Never smoker Exposure to second hand smoke: Yes Drug Use: none Patient Lives Alone: No - Nursing Vital Signs Nursing Vital Signs: Initial Vital Signs Temperature 99.1 F 01/09/22 12:58 Pulse Rate 96 H 07/28/22 12:58 Respiratory Rate 18 01/09/22 12:58 Blood Pressure 111/78 01/09/22 12:58 O2 Sat by Pulse Oximetry 95 01/09/22 12:58 Pain Scale Pain Intensity 0 - Physical Exam General Appearance: no apparent distress, alert Eye Exam: PERRL/EOMI, eyes nml inspection Ears, Nose, Throat Exam: normal ENT inspection, TMs normal, pharynx normal, dry mucous membranes Neck Exam: normal inspection, non-tender, supple, full range of motion Respiratory Exam: normal breath sounds, lungs clear, airway intact, No respiratory distress Cardiovascular Exam: regular rate/rhythm, normal heart sounds, normal peripheral pulses Gastrointestinal/Abdomen Exam: soft, normal bowel sounds, No tenderness, No mass Back Exam: normal inspection, normal range of motion, No CVA tenderness, No vertebral tenderness Extremity Exam: normal inspection, normal range of motion, pelvis stable Neurologic Exam: alert, oriented x 3, cooperative, normal mood/affect, nml cerebellar function, sensation nml, No motor deficits Skin Exam: normal color, warm, dry Lymphatic Exam: No adenopathy SpO2 Interpretation: normal SpO2: 95 O2 Delivery: Room Air - Course Nursing assessment & vital signs reviewed: Yes EKG Interpreted by Me: RATE (90), Sinus Rhythm, NORMAL AXIS, NORMAL INTERVALS Ordered Tests: Active Orders 24 hr Category Date Time Status EKG-ER Only STAT Care 01/09/22 13:00 Active IV Insertion STAT Care 01/09/22 13:00 Active cath [Cath for Specimen-Straight] STAT Care 01/09/22 13:21 Active ABDOMEN AND PELVIS W/0 CONTRAS [CT] Stat Exams 01/09/22 13:01 Completed CBC W DIFF Stat Lab 01/09/22 13:30 Completed CMP Stat Lab 01/09/22 13:30 Completed CULTURE,URINE Stat Lab 01/09/22 13:22 Received Lactic Acid Stat Lab 01/09/22 13:35 Completed TROPONIN Stat Lab 01/09/22 13:30 Completed UA W/RFX CULTURE Stat Lab 01/09/22 13:22 Completed Transfer Order Routine Transfer 01/09/22 Ordered Medication Summary Generic Name Dose Route Start Last Admin Trade Name Freq PRN Reason Stop Dose Admin Sodium Chloride 1,000 mls @ 100 mls/hr 01/09/22 13:00 01/09/22 13:12 Sodium Chloride 0.9% 1000 Ml IV 02/08/22 12:59 100 mls/hr .Q10H J CARLOS Administration Discontinued Medications Generic Name Dose Route Start Last Admin Trade Name Jerome PRN Reason Stop Dose Admin Ceftriaxone Sodium/Dextrose 1 g in 50 mls @ 100 mls/hr 01/09/22 14:11 01/09/22 15:00 Rocephin 1 Gm-D5w 50 Ml Bag IV 01/09/22 14:40 Infused STAT STA Infusion Ceftriaxone Sodium/Dextrose Confirm 01/09/22 14:28 Rocephin 1 Gm-D5w 50 Ml Bag Administered 01/09/22 14:29 Dose 1 g in 50 mls @ ud IV .STK-MED ONE Morphine Sulfate 2 mg 01/09/22 13:00 01/09/22 13:16 Morphine Sulfate 2 Mg/Ml Inj IV 01/09/22 13:01 2 mg STAT ONE Administration Morphine Sulfate Confirm 01/09/22 13:10 Morphine Sulfate 2 Mg/Ml Inj Administered 01/09/22 13:11 Dose 2 mg .ROUTE .STK-MED ONE Ondansetron HCl 4 mg 01/09/22 13:00 01/09/22 13:14 Ondansetron Hcl 4 Mg/2 Ml Vial IV 01/09/22 13:01 4 mg STAT ONE Administration Ondansetron HCl Confirm 01/09/22 13:10 Ondansetron Hcl 4 Mg/2 Ml Vial Administered 01/09/22 13:11 Dose 4 mg .ROUTE .STK-MED ONE Lab/Rad Data: Laboratory Result Diagrams 01/09/22 13:30 01/09/22 13:30 Laboratory Results 01/09/22 01/09/22 01/09/22 Range/Units 15:20 13:35 13:30 WBC (4.0-10.5) x10^3/uL RBC (4.1-5.4) x10^6/uL Hgb (12.0-16.0) g/dL Hct (35-47) % MCV (78-100) fL MCH (26-32) pg MCHC (32-36) g/dL RDW (11.5-14.0) % Plt Count (150-450) x10^3/uL MPV (7.5-11.0) fL Gran % (36.0-66.0) % Immature Gran % (Auto) (0.00-0.4) % Nucleat RBC Rel Count (0.00-0.1) % Eos # (Auto) (0-0.5) x10^3/uL Immature Gran # (Auto) (0.00-0.03) x10^3u/L Absolute Lymphs (auto) (1.0-4.6) x10^3/uL Absolute Monos (auto) (0.0-1.3) x10^3/uL Absolute Nucleated RBC (0.00-0.01) x10^3u/L Lymphocytes % (24.0-44.0) % Monocytes % (0.0-12.0) % Eosinophils % (0.00-5.0) % Basophils % (0.0-0.4) % Absolute Granulocytes (1.4-6.9) x10^3/uL Basophils # (0-0.4) x10^3/uL Sodium 133 L (137-145) mmol/L Potassium 4.2 (3.5-5.1) mmol/L Chloride 104 (98-107) mmol/L Carbon Dioxide 23 (22-30) mmol/L Anion Gap 10.5 (5-15) MEQ/L BUN 15 (7-17) mg/dL Creatinine 0.80 (0.52-1.04) mg/dL Estimated GFR > 60.0 ML/MIN Glucose 157 H (74-106) mg/dL Lactic Acid 1.6 (0.4-2.0) Calcium 8.5 (8.4-10.2) mg/dL Total Bilirubin 0.50 (0.2-1.3) mg/dL AST 90 H (14-36) U/L ALT 65 H (0-35) U/L Alkaline Phosphatase 121 (38-126) U/L Troponin I < 0.012 (0.000-0.034) ng/mL Serum Total Protein 6.2 L (6.3-8.2) g/dL Albumin 3.4 L (3.5-5.0) g/dL Urinalys Dipstick Clnc Urine Color (YELLOW) Urine Appearance (CLEAR) Urine pH (5-6) Ur Specific [place] (1.005-1.025) POC Urine Protein Conf (Negative) Urine Ketones (NEGATIVE) Urine Nitrite (NEGATIVE) Urine Bilirubin (NEGATIVE) Urine Urobilinogen (0-1) mg/dL Urine Leukocytes (NEGATIVE) Urine WBC (Auto) (0-5) /HPF Urine RBC (Auto) (0-2) /HPF U Epithel Cells (Auto) (FEW) /HPF Urine Bacteria (Auto) (NEGATIVE) /HPF Urine RBC (0-5) Darren/ul Urine Mucus (Auto) (NEGATIVE) /HPF Ur Culture Indicated? Urine Glucose (NEGATIVE) mg/dL Influenza Type A Ag NEGATIVE (NEGATIVE) Influenza Type B Ag NEGATIVE (NEGATIVE) RSV (PCR) NEGATIVE (Negative) SARS-CoV-2 (PCR) NEGATIVE (NEGATIVE) 01/09/22 01/09/22 Range/Units 13:30 13:22 WBC 10.8 H (4.0-10.5) x10^3/uL RBC 3.25 L (4.1-5.4) x10^6/uL Hgb 11.4 L (12.0-16.0) g/dL Hct 35.5 (35-47) % MCV 109.2 H (78-100) fL MCH 35.1 H (26-32) pg MCHC 32.1 (32-36) g/dL RDW 13.0 (11.5-14.0) % Plt Count 213 (150-450) x10^3/uL MPV 8.8 (7.5-11.0) fL Gran % 74.2 H (36.0-66.0) % Immature Gran % (Auto) 0.5 H (0.00-0.4) % Nucleat RBC Rel Count 0.0 (0.00-0.1) % Eos # (Auto) 0.02 (0-0.5) x10^3/uL Immature Gran # (Auto) 0.05 H (0.00-0.03) x10^3u/L Absolute Lymphs (auto) 1.23 (1.0-4.6) x10^3/uL Absolute Monos (auto) 1.44 H (0.0-1.3) x10^3/uL Absolute Nucleated RBC 0.00 (0.00-0.01) x10^3u/L Lymphocytes % 11.4 L (24.0-44.0) % Monocytes % 13.4 H (0.0-12.0) % Eosinophils % 0.2 (0.00-5.0) % Basophils % 0.3 (0.0-0.4) % Absolute Granulocytes 7.99 H (1.4-6.9) x10^3/uL Basophils # 0.03 (0-0.4) x10^3/uL Sodium (137-145) mmol/L Potassium (3.5-5.1) mmol/L Chloride (98-107) mmol/L Carbon Dioxide (22-30) mmol/L Anion Gap (5-15) MEQ/L BUN (7-17) mg/dL Creatinine (0.52-1.04) mg/dL Estimated GFR ML/MIN Glucose (74-106) mg/dL Lactic Acid (0.4-2.0) Calcium (8.4-10.2) mg/dL Total Bilirubin (0.2-1.3) mg/dL AST (14-36) U/L ALT (0-35) U/L Alkaline Phosphatase (38-126) U/L Troponin I (0.000-0.034) ng/mL Serum Total Protein (6.3-8.2) g/dL Albumin (3.5-5.0) g/dL Urinalys Dipstick Clnc MAIN LAB Urine Color YELLOW (YELLOW) Urine Appearance SLIGHTLY CLOUDY (CLEAR) Urine pH 6.5 (5-6) Ur Specific [place] 1.015 (1.005-1.025) POC Urine Protein Conf 100 (Negative) Urine Ketones NEGATIVE (NEGATIVE) Urine Nitrite POSITIVE (NEGATIVE) Urine Bilirubin NEGATIVE (NEGATIVE) Urine Urobilinogen 0.2 (0-1) mg/dL Urine Leukocytes LARGE (NEGATIVE) Urine WBC (Auto) >100 (0-5) /HPF Urine RBC (Auto) 6-10 (0-2) /HPF U Epithel Cells (Auto) FEW (FEW) /HPF Urine Bacteria (Auto) MODERATE (NEGATIVE) /HPF Urine RBC SMALL (0-5) Darren/ul Urine Mucus (Auto) SLIGHT (NEGATIVE) /HPF Ur Culture Indicated? YES Urine Glucose NEGATIVE (NEGATIVE) mg/dL Influenza Type A Ag (NEGATIVE) Influenza Type B Ag (NEGATIVE) RSV (PCR) (Negative) SARS-CoV-2 (PCR) (NEGATIVE) - Progress Progress: improved Progress Note: Patient reassessed. Patient feels much better. Work-up reveals pyelonephritis with a urinary tract infection. Nausea vomiting resolved. IV fluids infusing. CT abdomen pelvis revealed bilateral perinephric fat stranding consistent with pyelonephritis. Intravenous antibiotics infused. COVID test negative. Patient will require admission for further evaluation and treatment. Case discussed with Dr. Enrique who accepts admission to observation. Plan of care discussed with patient. She agrees to admission at [facility] for further evaluation and treatment. 01/09/22 16:12 Discussed with : Chava Will see patient in: hospital (observation) Counseled pt/family regarding: lab results, diagnosis, rad results - Departure Departure Disposition: Observation Clinical Impression: UTI (urinary tract infection), Pyelonephritis, Generalized weakness, Lung granuloma, Diverticulosis, Perinephric fat stranding, Exophytic renal cyst, Aortoiliac calcifications, Osteopenia, Arthritis of spine, Hip arthritis Condition: Stable Critical Care Time: No Referrals: NABIL TITUS, L[employer] IN [employer]PERVISOR [Primary Care Provider] - Follow up/PCP as directed
[2022-01-09 13:40] LABS: Absolute Neutrophil Ct (ANC) 7.99 x10^3/uL (1.4-6.9); Basophil (Absolute #) 0.03 x10^3/uL (0-0.4); Eosinophil % 0.2 % (0.00-5.0); Eosinophil (Absolute #) 0.02 x10^3/uL (0-0.5); Hematocrit 35.5 % (35-47); Hemoglobin 11.4 g/dL (12.0-16.0); Lymphocyte (Absolute #) 1.23 x10^3/uL (1.0-4.6); Lymphocytes % 11.4 % (24.0-44.0); Mean Cell Volume 109.2 fL (78-100); Mean Corpuscular Hemoglobin 35.1 pg (26-32); Mean Corpuscular Hgb Concent. 32.1 g/dL (32-36); Mean Platelet Volume 8.8 fL (7.5-11.0); Monocyte (Absolute #) 1.44 x10^3/uL (0.0-1.3); Monocytes % 13.4 % (0.0-12.0); Neutrophil % 74.2 % (36.0-66.0); Platelet Count 213 x10^3/uL (150-450); Red Blood Count 3.25 x10^6/uL (4.1-5.4); White Blood Count 10.8 x10^3/uL (4.0-10.5)
[2022-01-09 13:45] LABS: Appearance SLIGHTLY CLOUDY (CLEAR); Bilirubin NEGATIVE (NEGATIVE); Glucose NEGATIVE (NEGATIVE); Ketones NEGATIVE (NEGATIVE); Ph 6.5 (5-6); Protein,Urine Dip 100 (Negative); RBC SMALL Ery/ul (0-5); Specific Gravity 1.015 (1.005-1.025); Urobilinogen 0.2 mg/dL (0-1)
[2022-01-09 13:46] LABS: Dipstick done @ ? MAIN LAB; Nitrite POSITIVE (NEGATIVE)
[2022-01-09 13:48] LABS: Bacteria MODERATE /HPF (NEGATIVE); Epithelial Cells FEW /HPF (FEW); Mucus SLIGHT /HPF (NEGATIVE); Urine Cultured Indicated? YES; WBC >100 /HPF (0-5)
[2022-01-09 14:06] LABS: ALBUMIN 3.4 g/dL (3.5-5.0); ALKALINE PHOSPHATASE 121 U/L (38-126); ANION GAP 10.5 MEQ/L (5-15); BLOOD UREA NITROGEN 15 mg/dL (7-17); CHLORIDE 104 mmol/L (98-107); Calcium 8.5 mg/dL (8.4-10.2); Carbon Dioxide 23 mmol/L (22-30); EST GLOMERULAR FILTRATION RATE > 60.0 ML/MIN; Glucose 157 mg/dL (74-106); Potassium 4.2 mmol/L (3.5-5.1); SGOT/AST 90 U/L (14-36); SGPT/ALT 65 U/L (0-35); SODIUM 133 mmol/L (137-145); TROPONIN < 0.012 ng/mL (0.000-0.034); Total Protein 6.2 g/dL (6.3-8.2)
[2022-01-09] MEDS ORDERED: ROCEPHIN 1 Gm-D5w 50 ml Bag** 1 G/50 ML IVPB IV STA (14:11)
--- NOTE | 2022-01-09 14:16 | XRAY ---
Indication: Weakness, nausea, and vomiting. Status post colonoscopy January 08, 2022 Multiple contiguous axial images obtained through the abdomen and pelvis without contrast. Comparison: None Study is slightly degraded by respiration artifact throughout. Lung bases demonstrate scattered subsegmental atelectasis/scarring and small medial left lower lobe calcific granuloma. Heart not enlarged. Noncontrasted stomach and bowel loops appear nonobstructed. Appendix not visualized. Scattered sigmoid diverticulosis without diverticulitis. Both kidneys demonstrates nonspecific perinephric stranding. Underlying inflammatory/infectious process not completely excluded on this noncontrast exam. Incidental 3.1 cm right lower renal exophytic cyst. Previous cholecystectomy. No free fluid/air. Remaining liver, pancreas, spleen, adrenal glands, kidneys, ureters, bladder, and uterus are unremarkable for noncontrast exam. Mild scattered aortoiliac calcifications without AAA. Osseous structures intact with osteopenia, minimal/mild degenerative changes throughout the thoracolumbar spine, and mild bilateral hip degenerative arthropathy. No ventral or inguinal hernias. Impression: 1. Respiration artifact. 2. Nonspecific bilateral perinephric stranding. Underlying inflammatory/infectious process not completely excluded in the right clinical setting. 3. Chronic findings including bibasilar atelectasis/scarring, right renal cyst, sigmoid diverticulosis, chronic bony findings, and old granulomatous disease. 4. Remaining CT abdomen/pelvis without contrast exam is negative.
[2022-01-09] MEDS ORDERED: ROCEPHIN 1 Gm-D5w 50 ml Bag** 1 G/50 ML IVPB IV ONE (14:28)
[2022-01-09 15:59] LABS: INFLUENZA A NEGATIVE (NEGATIVE); INFLUENZA B NEGATIVE (NEGATIVE); RESPIRATORY SYNCTIAL VIRUS NEGATIVE (Negative); SARS-CoV-2 Xpert Express NEGATIVE (NEGATIVE)
[2022-01-09] MEDS ORDERED: MORPHINE SULFATE 2 MG INJ IV PRN (16:29)
[2022-01-09] MEDS ORDERED: Zofran 4 MG/2 ML VIAL IV PRN (16:29)
[2022-01-09] MEDS ORDERED: PHARMACY DOSING REQUEST MC ONE (17:04)
[2022-01-09] MEDS ORDERED: PROMETHAZINE HCL 12.5 MG PO PRN (17:19)
[2022-01-09] MEDS: Cordarone 200 MG PO SCH (17:52)
[2022-01-09] MEDS: ZOCOR 20MG PO SCH (17:52)
[2022-01-09] MEDS: Imdur 30 MG PO SCH (17:52)
[2022-01-09] MEDS: PIPERACILLIN/TAZOBACTAM 3.375 GM in Sodium Chloride 100ML MINI-BAG PLUS 100 ML IV SCH (17:52)
[2022-01-09] MEDS: PROTONIX 40 MG IV IV SCH (17:52)
[2022-01-09] MEDS: Sodium Chloride 0.9% 1000 ML 1,000 ML IV SCH ×2 (20:23→21:37)
[2022-01-09] MEDS: ELIQUIS 2.5 MG TABLET PO SCH (21:23)
[2022-01-09] MEDS: Lopressor 25MG Tab PO SCH (21:40)
[2022-01-09] MEDS ORDERED: NON-FORMULARY ITEM (Apixaban*** [Eliquis 5 Mg Tablet***] 5 MG Tablet) PO SCH (22:00)
[2022-01-10] MEDS: PIPERACILLIN/TAZOBACTAM 3.375 GM in Sodium Chloride 100ML MINI-BAG PLUS 100 ML IV SCH ×2 (00:08→06:28)
[2022-01-10 05:19] LABS: Absolute Neutrophil Ct (ANC) 6.01 x10^3/uL (1.4-6.9); Basophil (Absolute #) 0.04 x10^3/uL (0-0.4); Eosinophil % 1.2 % (0.00-5.0); Hemoglobin 9.8 g/dL (12.0-16.0); Lymphocyte (Absolute #) 1.33 x10^3/uL (1.0-4.6); Lymphocytes % 15.7 % (24.0-44.0); Mean Cell Volume 105.1 fL (78-100); Mean Corpuscular Hemoglobin 35.5 pg (26-32); Mean Corpuscular Hgb Concent. 33.8 g/dL (32-36); Mean Platelet Volume 8.8 fL (7.5-11.0); Monocyte (Absolute #) 0.98 x10^3/uL (0.0-1.3); Monocytes % 11.6 % (0.0-12.0); Neutrophil % 70.8 % (36.0-66.0); Platelet Count 196 x10^3/uL (150-450); Red Blood Count 2.76 x10^6/uL (4.1-5.4); Red Cell Distribution Width 13.2 % (11.5-14.0); White Blood Count 8.5 x10^3/uL (4.0-10.5)
[2022-01-10 05:47] LABS: ALBUMIN 2.6 g/dL (3.5-5.0); ALKALINE PHOSPHATASE 98 U/L (38-126); ANION GAP 7.2 MEQ/L (5-15); BLOOD UREA NITROGEN 11 mg/dL (7-17); CHLORIDE 106 mmol/L (98-107); Calcium 7.4 mg/dL (8.4-10.2); Carbon Dioxide 24 mmol/L (22-30); Creatinine 1 0.87 mg/dL (0.52-1.04); EST GLOMERULAR FILTRATION RATE > 60.0 ML/MIN; Glucose 102 mg/dL (74-106); Potassium 3.8 mmol/L (3.5-5.1); SGOT/AST 45 U/L (14-36); SGPT/ALT 51 U/L (0-35); SODIUM 133 mmol/L (137-145); Total Protein 5.2 g/dL (6.3-8.2)
[2022-01-10] MEDS: Sodium Chloride 0.9% 1000 ML 1,000 ML IV SCH ×3 (06:57→16:30)
[2022-01-10] MEDS: TYLENOL 325 MG PO PRN ×2 (09:22→19:31)
[2022-01-10] MEDS: ELIQUIS 2.5 MG TABLET PO SCH ×2 (09:23→21:55)
[2022-01-10] MEDS: ZOCOR 20MG PO SCH (09:24)
[2022-01-10] MEDS: Imdur 30 MG PO SCH (09:24)
[2022-01-10] MEDS: Cordarone 200 MG PO SCH (09:24)
[2022-01-10] MEDS: PROTONIX 40 MG IV IV SCH (09:24)
[2022-01-10] MEDS: Lopressor 25MG Tab PO SCH ×2 (09:25→21:56)
[2022-01-10] MEDS: Merrem 1 GM in Sodium Chloride 100ML MINI-BAG PLUS 100 ML IV SCH ×3 (09:27→23:56)
[2022-01-10] MEDS ORDERED: NON-FORMULARY ITEM (Pravastatin Sodium [Pravastatin Sodium] 40 MG Tablet) PO SCH (10:00)
[2022-01-10] MEDS ORDERED: Levofloxacin 500MG/100ML D5W 500 MG/100 ML BAG IV SCH ×2 (10:00)
[2022-01-10] MEDS ORDERED: ROCEPHIN 1 Gm-D5w 50 ml Bag** 1 G/50 ML IVPB IV SCH (10:00)
[2022-01-11] MEDS: Sodium Chloride 0.9% 1000 ML 1,000 ML IV SCH ×4 (00:51→23:02)
[2022-01-11] MEDS: TYLENOL 325 MG PO PRN ×2 (03:52→10:08)
[2022-01-11 05:34] LABS: Absolute Neutrophil Ct (ANC) 4.03 x10^3/uL (1.4-6.9); Basophil (Absolute #) 0.03 x10^3/uL (0-0.4); Eosinophil % 2.3 % (0.00-5.0); Eosinophil (Absolute #) 0.13 x10^3/uL (0-0.5); Hematocrit 29.2 % (35-47); Hemoglobin 9.4 g/dL (12.0-16.0); Lymphocyte (Absolute #) 0.86 x10^3/uL (1.0-4.6); Lymphocytes % 15.3 % (24.0-44.0); Mean Cell Volume 107.7 fL (78-100); Mean Corpuscular Hemoglobin 34.7 pg (26-32); Mean Corpuscular Hgb Concent. 32.2 g/dL (32-36); Mean Platelet Volume 8.6 fL (7.5-11.0); Monocyte (Absolute #) 0.53 x10^3/uL (0.0-1.3); Monocytes % 9.4 % (0.0-12.0); Neutrophil % 71.6 % (36.0-66.0); Platelet Count 173 x10^3/uL (150-450); Red Blood Count 2.71 x10^6/uL (4.1-5.4); Red Cell Distribution Width 13.1 % (11.5-14.0); White Blood Count 5.6 x10^3/uL (4.0-10.5)
[2022-01-11] MEDS: Merrem 1 GM in Sodium Chloride 100ML MINI-BAG PLUS 100 ML IV SCH (05:48)
[2022-01-11 06:09] LABS: ALBUMIN 2.5 g/dL (3.5-5.0); ALKALINE PHOSPHATASE 107 U/L (38-126); ANION GAP 8.4 MEQ/L (5-15); BLOOD UREA NITROGEN 9 mg/dL (7-17); CHLORIDE 111 mmol/L (98-107); Carbon Dioxide 22 mmol/L (22-30); Creatinine 1 0.67 mg/dL (0.52-1.04); EST GLOMERULAR FILTRATION RATE > 60.0 ML/MIN; Glucose 93 mg/dL (74-106); PROCALCITONIN 0.225 ng/mL (0.030-0.080); Potassium 3.5 mmol/L (3.5-5.1); SGOT/AST 49 U/L (14-36); SGPT/ALT 55 U/L (0-35); SODIUM 137 mmol/L (137-145); Total Protein 5.1 g/dL (6.3-8.2)
[2022-01-11] MEDS: ELIQUIS 2.5 MG TABLET PO SCH ×2 (10:02→21:04)
[2022-01-11] MEDS: ZOCOR 20MG PO SCH (10:02)
[2022-01-11] MEDS: Imdur 30 MG PO SCH (10:02)
[2022-01-11] MEDS: PROTONIX 40 MG IV IV SCH (10:02)
[2022-01-11] MEDS: Cordarone 200 MG PO SCH (10:02)
[2022-01-11] MEDS: Lopressor 25MG Tab PO SCH ×2 (10:03→21:04)
--- NOTE | 2022-01-11 12:14 | PCM.NOTE ---
Date and Time: 01/11/22 1208 Subjective Assessment: Pt is sitting up in bed; got dizzy when she sat up, but this has resolved. She is not sure if she's better - not feeling worse, "alright." Her notes that on admission she would not have been able to sit up in bed by herself, and staff concurs. Tolerating small amount of po this morning. c/o her chronic [place]. - Review of Systems Constitutional: No Fever Abdominal/Gastrointestinal: Appetite Changes Neurological: Dizziness, Headache Objective Exam General Appearance: no apparent distress, alert Neurologic Exam: oriented x 3, cooperative, normal mood/affect Skin Exam: normal color, warm, dry, No rash Eye Exam: eyes nml inspection Ears, Nose, Throat Exam: moist mucous membranes Neck Exam: normal inspection Respiratory Exam: normal breath sounds, lungs clear, No crackles/rales, No rhonchi, No wheezing Cardiovascular Exam: regular rate/rhythm, normal heart sounds, No murmur Gastrointestinal/Abdomen Exam: soft, No normal bowel sounds (hypoactive but present), No tenderness, No distention, No guarding, No rebound Extremity Exam: normal inspection, No pedal edema, No swelling Back Exam: normal inspection, No CVA tenderness, No rash OBJECTIVE DATA Vital Signs: Vital Signs - 24 hr Temp Pulse Resp BP Pulse Ox 01/11/22 08:00 97.7 F 71 23 130/67 95 01/11/22 03:51 97.0 F 74 18 112/66 96 01/10/22 23:32 97.8 F 87 16 110/56 96 01/10/22 19:41 98.2 F 113 H 20 111/59 96 01/10/22 16:00 98.1 F 116 H 21 141/78 95 Pain Assessment - Last Documented Pain Intensity 3 Pain Scale Used [facility] Intake and Output: Intake & Output 01/09/22 01/10/22 01/11/22 01/12/22 11:59 11:59 11:59 11:59 Intake Total 5297 7798 Output Total 8980 Balance 2212 2697 Weight 71.3 kg Lab Results: Lab Results-Last 24 Hours 01/11/22 01/11/22 Range/Units 05:18 05:18 WBC 5.6 (4.0-10.5) x10^3/uL RBC 2.71 L (4.1-5.4) x10^6/uL Hgb 9.4 L (12.0-16.0) g/dL Hct 29.2 L (35-47) % MCV 107.7 H (78-100) fL MCH 34.7 H (26-32) pg MCHC 32.2 (32-36) g/dL RDW 13.1 (11.5-14.0) % Plt Count 173 (150-450) x10^3/uL MPV 8.6 (7.5-11.0) fL Gran % 71.6 H (36.0-66.0) % Immature Gran % (Auto) 0.9 H (0.00-0.4) % Nucleat RBC Rel Count 0.0 (0.00-0.1) % Eos # (Auto) 0.13 (0-0.5) x10^3/uL Immature Gran # (Auto) 0.05 H (0.00-0.03) x10^3u/L Absolute Lymphs (auto) 0.86 L (1.0-4.6) x10^3/uL Absolute Monos (auto) 0.53 (0.0-1.3) x10^3/uL Absolute Nucleated RBC 0.00 (0.00-0.01) x10^3u/L Lymphocytes % 15.3 L (24.0-44.0) % Monocytes % 9.4 (0.0-12.0) % Eosinophils % 2.3 (0.00-5.0) % Basophils % 0.5 (0.0-0.4) % Absolute Granulocytes 4.03 (1.4-6.9) x10^3/uL Basophils # 0.03 (0-0.4) x10^3/uL Sodium 137 (137-145) mmol/L Potassium 3.5 (3.5-5.1) mmol/L Chloride 111 H (98-107) mmol/L Carbon Dioxide 22 (22-30) mmol/L Anion Gap 8.4 (5-15) MEQ/L BUN 9 (7-17) mg/dL Creatinine 0.67 (0.52-1.04) mg/dL Estimated GFR > 60.0 ML/MIN Glucose 93 (74-106) mg/dL Calcium 7.0 L (8.4-10.2) mg/dL Total Bilirubin 0.40 (0.2-1.3) mg/dL AST 49 H (14-36) U/L ALT 55 H (0-35) U/L Alkaline Phosphatase 107 (38-126) U/L Serum Total Protein 5.1 L (6.3-8.2) g/dL Albumin 2.5 L (3.5-5.0) g/dL Procalcitonin 0.225 H (0.030-0.080) ng/mL Radiology Exams: Radiology Procedures Category Date Time Status ABDOMEN AND PELVIS W/0 CONTRAS [CT] Stat Exams 01/09/22 13:01 Completed Assessment/Plan (1) Pyelonephritis Current Visit: Yes Status: Acute Assessment & Plan: Doing much better, just took several days to feel the improvement. Urine culture final this morning: E. coli, pansusceptible. on merrem day #2, but will change her back to rocephin (did consult with pharmacy as well). Code(s): N12 - TUBULO-INTERSTITIAL NEPHRITIS, NOT SPCF ACUTE OR CHRONIC (2) Generalized weakness Current Visit: Yes Status: Acute Assessment & Plan: improving. May be able to discharge to home in another day or two. Code(s): R53.1 - WEAKNESS
[2022-01-11] MEDS: ULTRAM 50 MG PO PRN ×2 (15:50→23:00)
[2022-01-11] MEDS: PHENERGAN 25 MG PO PRN ×2 (15:56→19:57)
[2022-01-11] MEDS ORDERED: Xylocaine-Mpf 2% 5 Ml Vial ONE (19:18)
[2022-01-11] MEDS: ROCEPHIN 1 Gm-D5w 50 ml Bag** 1 G/50 ML IVPB IV SCH (19:18)
[2022-01-12] MEDS: Sodium Chloride 0.9% 1000 ML 1,000 ML IV SCH ×3 (04:21→17:08)
[2022-01-12] MEDS: ULTRAM 50 MG PO PRN ×2 (04:21→09:02)
[2022-01-12] MEDS: PHENERGAN 25 MG PO PRN ×2 (08:04→14:57)
[2022-01-12] MEDS: PROVENTIL 2.5 MG/3 ML NEB IH PRN ×2 (08:23→14:50)
[2022-01-12 08:41] LABS: Absolute Neutrophil Ct (ANC) 4.68 x10^3/uL (1.4-6.9); Basophil (Absolute #) 0.02 x10^3/uL (0-0.4); Eosinophil % 1.1 % (0.00-5.0); Eosinophil (Absolute #) 0.07 x10^3/uL (0-0.5); Hematocrit 30.1 % (35-47); Hemoglobin 10.1 g/dL (12.0-16.0); Lymphocyte (Absolute #) 0.89 x10^3/uL (1.0-4.6); Lymphocytes % 14.1 % (24.0-44.0); Mean Cell Volume 105.6 fL (78-100); Mean Corpuscular Hemoglobin 35.4 pg (26-32); Mean Corpuscular Hgb Concent. 33.6 g/dL (32-36); Mean Platelet Volume 8.8 fL (7.5-11.0); Monocyte (Absolute #) 0.58 x10^3/uL (0.0-1.3); Monocytes % 9.2 % (0.0-12.0); Neutrophil % 74.5 % (36.0-66.0); Platelet Count 211 x10^3/uL (150-450); Red Blood Count 2.85 x10^6/uL (4.1-5.4); White Blood Count 6.3 x10^3/uL (4.0-10.5)
[2022-01-12 09:00] LABS: ALBUMIN 2.8 g/dL (3.5-5.0); ALKALINE PHOSPHATASE 148 U/L (38-126); ANION GAP 8.2 MEQ/L (5-15); BLOOD UREA NITROGEN 5 mg/dL (7-17); CHLORIDE 109 mmol/L (98-107); Calcium 7.3 mg/dL (8.4-10.2); Carbon Dioxide 24 mmol/L (22-30); EST GLOMERULAR FILTRATION RATE > 60.0 ML/MIN; Glucose 109 mg/dL (74-106); Potassium 3.5 mmol/L (3.5-5.1); SGOT/AST 88 U/L (14-36); SGPT/ALT 94 U/L (0-35); SODIUM 138 mmol/L (137-145); Total Protein 5.6 g/dL (6.3-8.2)
[2022-01-12] MEDS: Imdur 30 MG PO SCH (09:01)
[2022-01-12] MEDS: Cordarone 200 MG PO SCH (09:02)
[2022-01-12] MEDS: ELIQUIS 2.5 MG TABLET PO SCH ×2 (09:02→21:38)
[2022-01-12] MEDS: ROCEPHIN 1 Gm-D5w 50 ml Bag** 1 G/50 ML IVPB IV SCH (09:02)
[2022-01-12] MEDS: ZOCOR 20MG PO SCH (09:02)
[2022-01-12] MEDS: Lopressor 25MG Tab PO SCH ×2 (09:02→21:38)
[2022-01-12] MEDS: PROTONIX 40 MG IV IV SCH (09:03)
--- NOTE | 2022-01-12 12:07 | PCM.NOTE ---
Date and Time: 01/12/22 1201 Subjective Assessment: Pt lost her IV access temporarily last night. Has not been eating well and has some nausea when up, although she is interested in trying some chocolate boost. She started having some wheezing and is worried that she may be getting pneumonia. - Review of Systems Constitutional: No Fever Abdominal/Gastrointestinal: Nausea, No Vomiting Objective Exam General Appearance: no apparent distress, alert Neurologic Exam: oriented x 3, cooperative Skin Exam: normal color, warm, dry, No rash Eye Exam: eyes nml inspection Ears, Nose, Throat Exam: moist mucous membranes Neck Exam: normal inspection Respiratory Exam: normal breath sounds, lungs clear, No crackles/rales, No rhonchi, No wheezing Cardiovascular Exam: regular rate/rhythm, normal heart sounds, No murmur Gastrointestinal/Abdomen Exam: soft, normal bowel sounds, tenderness (epigastrum and RUQ) Extremity Exam: normal inspection, No pedal edema, No swelling OBJECTIVE DATA Vital Signs: Vital Signs - 24 hr Temp Pulse Resp BP Pulse Ox 01/12/22 11:03 97.1 F 83 16 134/80 94 L 01/12/22 08:47 82 18 96 01/12/22 07:02 98 F 88 22 155/76 91 L 01/12/22 03:57 97.5 F 78 20 130/78 95 01/11/22 23:40 98.2 F 84 24 132/82 95 01/11/22 19:33 98.8 F 89 20 146/80 96 01/11/22 16:00 98.0 F 85 27 H 140/72 95 Pain Assessment - Last Documented Pain Intensity 3 Pain Scale Used [facility] Intake and Output: Intake & Output 01/10/22 01/11/22 01/12/22 01/13/22 11:59 11:59 11:59 11:59 Intake Total 2212 4247 3298 Output Total 6950 3550 Balance 2212 2697 -252 Weight 71.3 kg Lab Results: Lab Results-Last 24 Hours 01/12/22 01/12/22 01/12/22 Range/Units 08:35 08:35 08:35 WBC 6.3 (4.0-10.5) x10^3/uL RBC 2.85 L (4.1-5.4) x10^6/uL Hgb 10.1 L (12.0-16.0) g/dL Hct 30.1 L (35-47) % MCV 105.6 H (78-100) fL MCH 35.4 H (26-32) pg MCHC 33.6 (32-36) g/dL RDW 13.0 (11.5-14.0) % Plt Count 211 (150-450) x10^3/uL MPV 8.8 (7.5-11.0) fL Gran % 74.5 H (36.0-66.0) % Immature Gran % (Auto) 0.8 H (0.00-0.4) % Nucleat RBC Rel Count 0.0 (0.00-0.1) % Eos # (Auto) 0.07 (0-0.5) x10^3/uL Immature Gran # (Auto) 0.05 H (0.00-0.03) x10^3u/L Absolute Lymphs (auto) 0.89 L (1.0-4.6) x10^3/uL Absolute Monos (auto) 0.58 (0.0-1.3) x10^3/uL Absolute Nucleated RBC 0.00 (0.00-0.01) x10^3u/L Lymphocytes % 14.1 L (24.0-44.0) % Monocytes % 9.2 (0.0-12.0) % Eosinophils % 1.1 (0.00-5.0) % Basophils % 0.3 (0.0-0.4) % Absolute Granulocytes 4.68 (1.4-6.9) x10^3/uL Basophils # 0.02 (0-0.4) x10^3/uL Sodium 138 (137-145) mmol/L Potassium 3.5 (3.5-5.1) mmol/L Chloride 109 H (98-107) mmol/L Carbon Dioxide 24 (22-30) mmol/L Anion Gap 8.2 (5-15) MEQ/L BUN 5 L (7-17) mg/dL Creatinine 0.60 (0.52-1.04) mg/dL Estimated GFR > 60.0 ML/MIN Glucose 109 H (74-106) mg/dL Calcium 7.3 L (8.4-10.2) mg/dL Total Bilirubin 0.30 (0.2-1.3) mg/dL AST 88 H (14-36) U/L ALT 94 H (0-35) U/L Alkaline Phosphatase 148 H (38-126) U/L Serum Total Protein 5.6 L (6.3-8.2) g/dL Albumin 2.8 L (3.5-5.0) g/dL Procalcitonin 0.137 H (0.030-0.080) ng/mL Radiology Exams: Radiology Procedures Category Date Time Status CHEST 2 VIEWS (PA AND LAT) Routine Exams 01/12/22 Taken Assessment/Plan (1) Pyelonephritis Current Visit: Yes Status: Acute Assessment & Plan: E. coli, higgnis-susceptible. On rocephin IV. Has been covered with appropriate antibiotics, day #4. procalcitonin, while still elevated, is decreasing. Code(s): N12 - TUBULO-INTERSTITIAL NEPHRITIS, NOT SPCF ACUTE OR CHRONIC (2) Generalized weakness Current Visit: Yes Status: Acute Assessment & Plan: improving slowly. Code(s): R53.1 - WEAKNESS (3) Nausea Current Visit: Yes Status: Acute Assessment & Plan: on pantoprazole. Could be related to antibiotic use. Code(s): R11.0 - NAUSEA
[2022-01-12] MEDS: Acidophilus TABLET PO SCH ×2 (14:35→21:38)
[2022-01-12] MEDS: TYLENOL 325 MG PO PRN ×2 (15:02→21:38)
--- NOTE | 2022-01-12 19:51 | XRAY ---
Indication: Cough and weakness. Comparison: August 26, 2019 PA/lateral chest demonstrates new central pulmonary vascular prominence and small bibasilar effusions/atelectasis right greater than left. Heart not enlarged. Bony thorax intact again with osteopenia and degenerative changes. Comment: Preliminary interpretation made by [facility]. No critical discrepancy.
[2022-01-13] MEDS: Sodium Chloride 0.9% 1000 ML 1,000 ML IV SCH (03:09)
[2022-01-13] MEDS: PROVENTIL 2.5 MG/3 ML NEB IH PRN (04:26)
[2022-01-13 05:09] LABS: Absolute Neutrophil Ct (ANC) 7.48 x10^3/uL (1.4-6.9); Basophil (Absolute #) 0.02 x10^3/uL (0-0.4); Eosinophil % 0.6 % (0.00-5.0); Eosinophil (Absolute #) 0.06 x10^3/uL (0-0.5); Hematocrit 31.3 % (35-47); Hemoglobin 10.4 g/dL (12.0-16.0); Lymphocyte (Absolute #) 1.07 x10^3/uL (1.0-4.6); Lymphocytes % 10.9 % (24.0-44.0); Mean Cell Volume 104.7 fL (78-100); Mean Corpuscular Hemoglobin 34.8 pg (26-32); Mean Corpuscular Hgb Concent. 33.2 g/dL (32-36); Monocyte (Absolute #) 1.12 x10^3/uL (0.0-1.3); Monocytes % 11.4 % (0.0-12.0); Neutrophil % 76.2 % (36.0-66.0); Platelet Count 223 x10^3/uL (150-450); Red Blood Count 2.99 x10^6/uL (4.1-5.4); Red Cell Distribution Width 13.3 % (11.5-14.0); White Blood Count 9.8 x10^3/uL (4.0-10.5)
[2022-01-13 05:41] LABS: ALKALINE PHOSPHATASE 167 U/L (38-126); ANION GAP 10.8 MEQ/L (5-15); BLOOD UREA NITROGEN 4 mg/dL (7-17); CHLORIDE 108 mmol/L (98-107); Calcium 7.7 mg/dL (8.4-10.2); Carbon Dioxide 21 mmol/L (22-30); Creatinine 1 0.58 mg/dL (0.52-1.04); EST GLOMERULAR FILTRATION RATE > 60.0 ML/MIN; Glucose 120 mg/dL (74-106); PROCALCITONIN 0.124 ng/mL (0.030-0.080); Potassium 3.7 mmol/L (3.5-5.1); SGOT/AST 81 U/L (14-36); SGPT/ALT 86 U/L (0-35); SODIUM 135 mmol/L (137-145); Total Protein 5.8 g/dL (6.3-8.2)
[2022-01-13] MEDS: Cordarone 200 MG PO SCH (05:59)
[2022-01-13] MEDS: Lopressor 25MG Tab PO SCH ×2 (07:07→19:30)
[2022-01-13] MEDS ORDERED: PHARMACY DOSING REQUEST MC ONE (07:38)
[2022-01-13] MEDS ORDERED: Lasix 20 MG/2 ML IV ONE (08:45)
[2022-01-13] MEDS ORDERED: Lopressor 25MG Tab PO ONE (09:00)
[2022-01-13] MEDS: Acidophilus TABLET PO SCH ×3 (09:26→19:31)
[2022-01-13] MEDS: ELIQUIS 2.5 MG TABLET PO SCH ×2 (09:26→19:30)
[2022-01-13] MEDS: ZOCOR 20MG PO SCH (09:27)
[2022-01-13] MEDS: PROTONIX 40 MG IV IV SCH (09:27)
[2022-01-13] MEDS: Imdur 30 MG PO SCH (09:27)
[2022-01-13] MEDS: ROCEPHIN 1 Gm-D5w 50 ml Bag** 1 G/50 ML IVPB IV SCH (09:28)
--- NOTE | 2022-01-13 10:01 | HP ---
CHIEF COMPLAINT: Nausea, vomiting, abdominal pain. HISTORY OF PRESENT ILLNESS: The patient is a 71-year-old white female who apparently had endoscopic evaluation performed at [facility] the day previous. The patient reports to me that she had symptoms urinary tract infection over the past two weeks. She has been unable to get any medication due to her inability getting to her primary care provider. She apparently has been having trouble with abdominal pain and had endoscopic evaluation performed and was sent home yesterday from the endoscopic evaluation apparently with no significant pathology noted on the upper or lower endoscopy. PAST MEDICAL/SURGICAL HISTORY: The patients' medical history was otherwise significant for hyperlipidemia, congestive heart failure, atrial fibrillation, coronary artery disease and cardiomyopathy. She previously had cholecystectomy, left mastectomy and rotator cuff repair. She had reduction of the right breast. Open reduction internal fixation left ankle. HOME MEDICATIONS: Bisoprolol 5 mg daily, Pravastatin 40 mg a day, aspirin 81 mg a day, Cordarone 200 mg a day, Imdur 30 mg a day, metoprolol 25 mg a day, promethazine 12.5 mg PRN basis for nausea. ALLERGIES: NKDA. PHYSICAL EXAMINATION: The patient's vital signs in the emergency room showed her temperature to be 99.1F, pulse 96, respiratory rate 18 and blood pressure 111/78. O2 saturation 95%. HEENT: Normocephalic, atraumatic. Pupils equal round reactive to light. Extraocular movements intact. Oropharynx is somewhat dry. NECK: Supple without lymphadenopathy, thyromegaly or JVD. CHEST: Clear to auscultation. HEART: Irregular at times. No significant rubs or gallops are heard. ABDOMEN: Diffusely tender. No palpable masses. EXTREMITIES: Without cyanosis, clubbing or edema. NEUROLOGIC: The patient is alert and oriented x3 with no focal deficits noted. LAB DATA AND TESTS: Her laboratory studies showed her white count to be 10.8, hemoglobin 11.4, PLT count 213,000. Electrolytes were low sodium of 133. She had BUN 15, creatinine 0.80. Her glucose was 157 nonfasting. She had lactic acid 1.6. Troponins less than 0.012. Her liver enzymes were somewhat elevated with AST 90, ALT 65. Her influenza, respiratory syncytial virus and COVID tests were all negative. Her UA however was significantly abnormal with positive nitrite, greater than 100 white blood cells per high power field, specific gravity 1.015. The patient did have CT scan abdomen and pelvis showing some stranding in both kidneys. She otherwise had no significant underlying pathology noted. There was some sigmoid diverticulosis but no mention of diverticulitis. ASSESSMENT: In the emergency room, the patient Rocephin initially and then placed on Levaquin for follow up. Cultures have been obtained from the urine. She is otherwise receiving some IV fluids for hydration and monitoring.
[2022-01-13] MEDS: TYLENOL 325 MG PO PRN (23:53)
[2022-01-14 04:48] LABS: Absolute Neutrophil Ct (ANC) 4.43 x10^3/uL (1.4-6.9); Basophil (Absolute #) 0.04 x10^3/uL (0-0.4); Eosinophil (Absolute #) 0.29 x10^3/uL (0-0.5); Hematocrit 28.7 % (35-47); Hemoglobin 9.6 g/dL (12.0-16.0); Lymphocyte (Absolute #) 1.67 x10^3/uL (1.0-4.6); Lymphocytes % 23.1 % (24.0-44.0); Mean Cell Volume 102.9 fL (78-100); Mean Corpuscular Hemoglobin 34.4 pg (26-32); Mean Corpuscular Hgb Concent. 33.4 g/dL (32-36); Mean Platelet Volume 8.9 fL (7.5-11.0); Monocyte (Absolute #) 0.75 x10^3/uL (0.0-1.3); Monocytes % 10.4 % (0.0-12.0); Neutrophil % 61.2 % (36.0-66.0); Platelet Count 247 x10^3/uL (150-450); Red Blood Count 2.79 x10^6/uL (4.1-5.4); Red Cell Distribution Width 13.2 % (11.5-14.0); White Blood Count 7.2 x10^3/uL (4.0-10.5)
[2022-01-14 05:23] LABS: ALBUMIN 2.7 g/dL (3.5-5.0); ALKALINE PHOSPHATASE 145 U/L (38-126); ANION GAP 9.3 MEQ/L (5-15); BLOOD UREA NITROGEN 12 mg/dL (7-17); CHLORIDE 107 mmol/L (98-107); Calcium 8.1 mg/dL (8.4-10.2); Carbon Dioxide 26 mmol/L (22-30); Creatinine 1 0.75 mg/dL (0.52-1.04); EST GLOMERULAR FILTRATION RATE > 60.0 ML/MIN; Glucose 91 mg/dL (74-106); PROCALCITONIN 0.137 ng/mL (0.030-0.080); Potassium 3.3 mmol/L (3.5-5.1); SGOT/AST 47 U/L (14-36); SGPT/ALT 69 U/L (0-35); SODIUM 140 mmol/L (137-145); Total Protein 5.5 g/dL (6.3-8.2)
[2022-01-14] MEDS: Lopressor 25MG Tab PO SCH (09:22)
[2022-01-14] MEDS: ZOCOR 20MG PO SCH (09:22)
[2022-01-14] MEDS: Imdur 30 MG PO SCH (09:22)
[2022-01-14] MEDS: ROCEPHIN 1 Gm-D5w 50 ml Bag** 1 G/50 ML IVPB IV SCH (09:22)
[2022-01-14] MEDS: ELIQUIS 2.5 MG TABLET PO SCH (09:22)
[2022-01-14] MEDS: Cordarone 200 MG PO SCH (09:22)
[2022-01-14] MEDS: PROTONIX 40 MG IV IV SCH (09:22)
[2022-01-14] MEDS: Acidophilus TABLET PO SCH ×2 (09:22→14:22)
--- NOTE | 2022-01-14 09:48 | DS ---
DISCHARGE DIAGNOSES: 1) PYELONEPHRITIS. 2) CONGESTIVE HEART FAILURE. 3) ATRIAL FIBRILLATION WITH RAPID VENTRICULAR RESPONSE. HISTORY: The patient is a 71-year-old white female who presented to the emergency room after having had a previous endoscopic evaluation at [facility] the previous day. The patient reports that she has been having trouble with urinary symptoms for the past couple of weeks. She tried to get a hold of her primary care provider but they said they would not give her antibiotics without seeing her in the office and she just did without. The patient was seen in the emergency room. Evaluation revealed the patient to have what appeared to be pyelonephritis, stranding in both kidneys consistent with the above diagnosis. The patient had greater than 100 white blood cells per high power field. HOSPITAL COURSE: The patient was admitted to the medicine amado where she received IV antibiotics. The urine culture did return Escherichia coli which was sensitive to all antibiotics tested. She was initially on Rocephin and was getting Levaquin during her stay. The patient appeared somewhat better with antibiotic treatment in regards to how she was feeling but then developed recurrence of her atrial fibrillation with rapid ventricular response. The patient was found to have ProBNP level at that time of over 15,000. She was given IV Lasix after which the patient diuresed nicely and her rapid heart rate resolved and she was running at normal rate after the diuresis. The patient was felt to be ready for discharge home finally on 01/14/2022. At that time her atrial fibrillation was again under control. We had increased her metoprolol from 12.5 twice a day to 25 twice a day. She will be on Keflex 500 t.i.d. for an additional three days to complete a seven day course of antibiotics for her Escherichia coli urinary tract infection. The patient is also suggested to follow up with her primary care provider who is a nurse practitioner up in [place] and with her appliance service supervisor, Dr. Lind, due to her recent issues. The patient's medications otherwise will continue to be Pravastatin 40 mg a day, aspirin 81 mg a day, Cordarone 200 mg a day, Imdur 30 mg a day in addition to the above medications for the urinary tract infection. The patient is instructed otherwise to follow up in the office next week or to return to the hospital should she have further problems with the pain or rapid heart rate.
[2022-01-14 16:50] VITALS: BP 118/66; PULSE 81; O2SAT 93
== END 2022-01-14 17:30 | DRG 690 ==
LOC: ED 12:56 → MED SURG 16:25 → OBSVTOIN 01-10 07:12
PROVIDERS: ADMIT Family Medicine; ATTEND Family Medicine
DX: N12 Tubulo-interstitial nephritis, not specified as acute or chronic (principal); I48.20 Chronic atrial fibrillation, unspecified; I50.9 Heart failure, unspecified; R53.1 Weakness; R11.0 Nausea; A49.8 Other bacterial infections of unspecified site; E78.5 Hyperlipidemia, unspecified; R42 Dizziness and giddiness; Z79.899 Other long term (current) drug therapy; Z20.828 Contact with and (suspected) exposure to other viral communicable diseases; Z98.890 Other specified postprocedural states
CPT/HCPCS: 0241U; 36000; 36415; 71046; 74176; 80053; 81015; 83605; 83880; 84145; 84484; 85025; 85652; 87077; 87086; 87186; 93005; 93268; 94640; 94760; 96365; 96374; 96375; 97110; 97161; 99285; G0378; P9612; J0696; J1940; J2270; J2405; J7609; A9270-GY

== ENCOUNTER 2023-01-05 16:44 | Emergency (ER) | payer MEDICARE, OTHER ==
--- NOTE | 2023-01-05 16:49 | ERPHSYRPT ---
- History of Present Illness Time Seen by Provider: 01/05/23 16:49 Source: patient, family Exam Limitations: no limitations Physician History: This is a 72-year-old white female patient of Dr. Enrique has a history of arrhythmia, hypertension, hyperlipidemia, Eliquis, CHF and cardiomyopathy. She presents emergency department after falling yesterday. She has pain and bruising in her thoracic spine area. She also complains of nausea and generalized abdominal cramping. Patient was seen by her primary care provider on 01/02/2023 and, per her report, they performed a urinalysis which did not show a urinary tract infection. Occurred: yesterday Reason for Fall: lost balance Injuries/Pain Location: back Loss of Consciousness: no loss of consciousness Quality: aching, cramping Severity of Pain-Max: mild (To moderate) Severity of Pain-Current: mild (To moderate) Modifying Factors: Improves With: nothing Associated Symptoms (Fall): abdominal pain, back pain, No extremity injury, No headache Allergies/Adverse Reactions: No Known Drug Allergies Allergy (Verified 01/05/23 16:56) Home Medications: Pravastatin Sodium 40 mg PO DAILY 03/19/20 [History] Amiodarone HCl 200 mg [Cordarone 200 MG] 200 mg PO DAILY 10/26/21 [History] Isosorbide Mononitrate 30 mg [Imdur 30 MG] 30 mg PO DAILY 10/26/21 [History] Promethazine HCl 12.5 mg PO QID PRN PRN 10/26/21 [History] Apixaban [Eliquis 5 mg Tablet] 5 mg PO BID 01/09/22 [History] Dicyclomine HCl 20 mg [Bentyl 20 mg] 10 mg PO QID PRN 01/09/22 [History] Famotidine 20 mg PO BID 01/09/22 [History] Hx Tetanus, Diphtheria Vaccination/Date Given: Yes Hx Influenza Vaccination/Date Given: No Hx Pneumococcal Vaccination/Date Given: No Travel Risk - International Travel Have you traveled outside of the country in past 3 weeks: No - Coronavirus Screening Are you exhibiting any of the following symptoms?: No Close contact with a COVID-19 positive Pt in past 14-21 Days: No - Vaccine Status Have you recieved a Covid-19 vaccination: Yes Obstetrics Teacher: Pfizer - Vaccination Dates Date of 2cond Vaccination (if applicable): 2020 Dates if Unknown: unknown - Review of Systems Constitutional: No Symptoms Eyes: No Symptoms Ears, Nose, & Throat: No Symptoms Respiratory: No Symptoms Cardiac: No Symptoms Abdominal/Gastrointestinal: Abdominal Pain (Generalized cramping), Nausea Genitourinary Symptoms: No Symptoms Musculoskeletal: Back Pain (Mid thoracic level) Skin: No Symptoms Neurological: No Symptoms Psychological: No Symptoms Endocrine: No Symptoms Hematologic/Lymphatic: No Symptoms Immunological/Allergic: No Symptoms All Other Systems: Reviewed and Negative - Past Medical History Pertinent Past Medical History: Yes Neurological History: Peripheral Neuropathy ENT History: No Pertinent History Cardiac History: Arrhythmia, Congestive Heart Failure, Hypertension Respiratory History: CHF Endocrine Medical History: No Pertinent History Musculoskeletal History: Osteoporosis GI Medical History: Diverticulitis, Diverticulosis, Gallbladder Disease History: No Pertinent History Psycho-Social History: No Pertinent History Female Reproductive Disorders: Breast Cancer Other Medical History: NEUROPATHY IN THE L HAND. DX WITH IRON OVERLOAD IN THE BLOOD. SOB WITH SHORT ACTIVITY. SHE NOTES DIFFICULTY WITH SHORT TERM MEMORY. DENIES SEEING A NEUROLOGIST. SHE NOTES HEART ISSUES DUE TO PAST CHEMOTHERAPY. A- FIB. BREAST CA IN 1993, IN REMISSION. SEPSIS, KIDNEY INFECTIONS, L ANKLE FR ACTURE X2. - Past Surgical History Past Surgical History: Yes Neuro Surgical History: No Pertinent History Cardiac: No Pertinent History Respiratory: No Pertinent History Gastrointestinal: Cholecystectomy Genitourinary: No Pertinent History Musculoskeletal: No Pertinent History Female Surgical History: No Pertinent History Other Surgical History: masectomy left, rotator cuff repain, reduction of right breast, open reduction of left ankle - Social History Smoking Status: Never smoker Exposure to second hand smoke: No Drug Use: none Patient Lives Alone: No - Nursing Vital Signs Nursing Vital Signs: Initial Vital Signs Pulse Rate 64 01/05/23 17:00 Respiratory Rate 16 01/05/23 17:00 Blood Pressure 101/61 01/05/23 17:00 Pain Scale Pain Intensity 4 - Alena Coma Score Best Eye Response (Alena): (4) open spontaneously Best Verbal Response (Alena): (5) oriented Best Motor Response (Alena): (6) obeys commands [place] Total: 15 - Physical Exam General Appearance: no apparent distress, alert, anxiety Head Injury: no evidence of injury Eye Exam: PERRL/EOMI, eyes nml inspection ENT Exam: airway nml, nml ext.inspection, No evidence of ENT injury Neck Exam: supple, trachea midline, full range of motion, normal alignment, normal inspection Respiratory/Chest Exam: normal breath sounds, No chest tenderness, No respiratory distress, No ecchymosis, No crepitus Cardiovascular Exam: normal heart sounds, regular rate/rhythm Gastrointestinal Exam: soft, normal bowel sounds, tenderness (Mild diffuse), No guarding, No rebound Rectal Exam: not done Back Exam: normal inspection, normal range of motion, No CVA tenderness, No vertebral tenderness Extremity Exam: normal inspection, normal range of motion, capillary refill <3 sec, pelvis stable Neurologic Exam: alert, oriented x 3, cooperative, dry color tester II-XII nml as tested, normal mood/affect, nml cerebellar function, sensation nml, other (Patient uses a walker to help her ambulate) Skin Exam: normal color, warm, dry SpO2 Interpretation: normal O2 Delivery: Room Air - Course Nursing assessment & vital signs reviewed: Yes Ordered Tests: Active Orders 24 hr Category Date Time Status ABDOMEN AND PELVIS W/0 CONTRAS [CT] Stat Exams 01/05/23 17:07 Taken THORACIC SPINE W/O CONTRAST [CT] Stat Exams 01/05/23 17:08 Taken AMYLASE Stat Lab 01/05/23 17:07 Completed CBC W DIFF Stat Lab 01/05/23 17:07 Completed CMP Stat Lab 01/05/23 17:07 Completed CULTURE,URINE Stat Lab 01/05/23 17:09 Received LIPASE Stat Lab 01/05/23 17:07 Completed UA W/RFX UR CULTURE Stat Lab 01/05/23 17:09 Completed Lab/Rad Data: Laboratory Result Diagrams 01/05/23 17:07 01/05/23 17:07 Laboratory Results 01/05/23 01/05/23 01/05/23 Range/Units 17:09 17:07 17:07 WBC 8.4 (4.0-10.5) x10^3/uL RBC 3.46 L (4.1-5.4) x10^6/uL Hgb 11.9 L (12.0-16.0) g/dL Hct 37.0 (35-47) % MCV 106.9 H (78-100) fL MCH 34.4 H (26-32) pg MCHC 32.2 (32-36) g/dL RDW 14.4 H (11.5-14.0) % Plt Count 216 (150-450) x10^3/uL MPV 9.3 (7.5-11.0) fL Gran % 78.7 H (36.0-66.0) % Immature Gran % (Auto) 0.2 (0.00-0.4) % Nucleat RBC Rel Count 0.0 (0.00-0.1) % Eos # (Auto) 0.01 (0-0.5) x10^3/uL Immature Gran # (Auto) 0.02 (0.00-0.03) x10^3u/L Absolute Lymphs (auto) 1.00 (1.0-4.6) x10^3/uL Absolute Monos (auto) 0.75 (0.0-1.3) x10^3/uL Absolute Nucleated RBC 0.00 (0.00-0.01) x10^3u/L Lymphocytes % 11.9 L (24.0-44.0) % Monocytes % 8.9 (0.0-12.0) % Eosinophils % 0.1 (0.00-5.0) % Basophils % 0.2 (0.0-0.4) % Absolute Granulocytes 6.59 (1.4-6.9) x10^3/uL Basophils # 0.02 (0-0.4) x10^3/uL Sodium 130 L (137-145) mmol/L Potassium 4.6 (3.5-5.1) mmol/L Chloride 99 (98-107) mmol/L Carbon Dioxide 20 L (22-30) mmol/L Anion Gap 16.2 H (5-15) MEQ/L BUN 16 (7-17) mg/dL Creatinine 1.01 (0.52-1.04) mg/dL Estimated GFR 56.9 ML/MIN Glucose 125 H (74-106) mg/dL Calcium 8.7 (8.4-10.2) mg/dL Total Bilirubin 0.80 (0.2-1.3) mg/dL AST 104 H (14-36) U/L ALT 82 H (0-35) U/L Alkaline Phosphatase 111 (38-126) U/L Serum Total Protein 6.9 (6.3-8.2) g/dL Albumin 3.7 (3.5-5.0) g/dL Amylase 93 (30-110) U/L Lipase 38 (23-300) U/L Urine Color Yellow (Yellow) Urine Appearance Turbid A (Clear) Urine pH 7.5 (4.6-8.0) Ur Specific Edson 1.015 (1.005-1.030) Urine Protein Trace A (Negative) Urine Glucose (UA) Negative (Negative) mg/dL Urine Ketones Trace A (Negative) Urine Blood Negative (Negative) Urine Nitrite Negative (Negative) Urine Bilirubin Negative (Negative) Urine Urobilinogen 1.0 A (0.2) mg/dL Ur Leukocyte Esterase Trace A (Negative) U Hyaline Cast (Auto) NONE SEEN (0-2) /LPF Urine Microscopic RBC 0-2 (0-5) /HPF Urine Microscopic WBC 0-2 (0-5) /HPF Ur Epithelial Cells None Seen (None Seen) /HPF Urine Bacteria None Seen (None Seen) /HPF Urine Culture Reflexed YES (NO) - Progress Progress: unchanged Progress Note: 01/05/23 19:02 CT scan of the abdomen pelvis without contrast shows no new or acute intra- abdominal or intrapelvic abnormalities. It is essentially unchanged from the similar test performed on 01/09/2022. This was interpreted by the radiologist and I reviewed the impression. CT scan of thoracic spine shows a subacute to chronic superior endplate fracture of T11 with approximately 25% height loss. This is new when compared to a chest x-ray performed on 09/29/2022. 01/05/23 20:07 This patient's medical issue is 1 of moderate complexity. Level complexity and the work-up performed is based on the review of the patient's past medical history, review the patient's medication list, review the patient's drug allergy list, history of present illness and physical findings on examination. This patient underwent a CBC, CMP, urinalysis as well as a CT scan of the abdomen pelvis and CT scan of thoracic spine. I reviewed the results of the work-up. The above-stated findings are noted on the CT scan of the abdomen pelvis without contrast with a CT scan of the thoracic spine without contrast. I reviewed the results with the patient. Patient does have a mild urinary tract infection. She has mild hyponatremia. Patient's thoracic spine shows a subacute to chronic superior endplate fracture of T11. Patient states that she has fallen frequently over the last several months. Counseled pt/family regarding: lab results, diagnosis, need for follow-up, rad results Medical Desision Making - Independent Historian Additional History obtained from: Spouse - Diagnostic Testing Diagnostic test were ordered, analyzed, and reviewed by me: Yes Radiological Interpretation: Reviewed by me, Teleradiologist Report - Risk of complications The pt has a mod risk of morbidity or mortality based on: Need for prescription drug management - Departure Departure Disposition: Home Clinical Impression: Frequent falls, Urinary tract infection, Compression fx, thoracic spine, Hyponatremia Condition: Stable Critical Care Time: No Referrals: ALFONSO ENRIQUE [Primary Care Provider] - Follow up/PCP as directed Additional Instructions: Drink plenty of fluids. Take your antibiotics as prescribed. Follow-up with your primary care provider tomorrow, 01/06/2023 for further evaluation management. Continue your other medications as prescribed. Prescriptions: Cephalexin Mh 500 mg [Keflex 500 mg] 500 mg PO TID #21 cap
[2023-01-05 18:16] LABS: Absolute Neutrophil Ct (ANC) 6.59 x10^3/uL (1.4-6.9); BASOPHIL % 0.2 % (0.0-0.4); Basophil (Absolute #) 0.02 x10^3/uL (0-0.4); Eosinophil % 0.1 % (0.00-5.0); Eosinophil (Absolute #) 0.01 x10^3/uL (0-0.5); Hemoglobin 11.9 g/dL (12.0-16.0); IMMATURE GRAN # 0.02 x10^3u/L (0.00-0.03); IMMATURE GRAN % 0.2 % (0.00-0.4); Lymphocytes % 11.9 % (24.0-44.0); Mean Cell Volume 106.9 fL (78-100); Mean Corpuscular Hemoglobin 34.4 pg (26-32); Mean Corpuscular Hgb Concent. 32.2 g/dL (32-36); Mean Platelet Volume 9.3 fL (7.5-11.0); Monocyte (Absolute #) 0.75 x10^3/uL (0.0-1.3); Monocytes % 8.9 % (0.0-12.0); Neutrophil % 78.7 % (36.0-66.0); Platelet Count 216 x10^3/uL (150-450); Red Blood Count 3.46 x10^6/uL (4.1-5.4); Red Cell Distribution Width 14.4 % (11.5-14.0); White Blood Count 8.4 x10^3/uL (4.0-10.5)
[2023-01-05 18:24] LABS: ALBUMIN 3.7 g/dL (3.5-5.0); ANION GAP 16.2 MEQ/L (5-15); BILIRUBIN,TOTAL 0.8 mg/dL (0.2-1.3); Calcium 8.7 mg/dL (8.4-10.2); Creatinine 1 1.01 mg/dL (0.52-1.04); EST GLOMERULAR FILTRATION RATE 56.9 ML/MIN; Potassium 4.6 mmol/L (3.5-5.1); Total Protein 6.9 g/dL (6.3-8.2)
[2023-01-05 19:57] LABS: Appearance Turbid (Clear); Bacteria None Seen /HPF (None Seen); Bilirubin Negative (Negative); Blood Negative (Negative); Epithelial Cells None Seen /HPF (None Seen); Glucose, Urine Negative (Negative); Hyaline Casts NONE SEEN /LPF (0-2); Ketones Trace (Negative); Leukocyte Esterase Trace (Negative); Nitrite Negative (Negative); Ph 7.5 (4.6-8.0); Protein,Urine Dip Trace (Negative); RBC 0-2 /HPF (0-5); Specific Gravity 1.015 (1.005-1.030); WBC 0-2 /HPF (0-5)
[2023-01-05 19:58] LABS: ADD URINE CULTURE? YES (NO)
[2023-01-05] MEDS ORDERED: Rocephin 1000 MG INJ IM ONE (20:06)
[2023-01-05] MEDS ORDERED: Rocephin 1000 MG INJ ONE (20:14)
[2023-01-05 20:26] VITALS: BP 107/70; PULSE 66; RESP 18; O2SAT 96
--- NOTE | 2023-01-06 08:51 | XRAY ---
Indication: Right back pain following fall. Multiple contiguous axial images obtained through the thoracic spine. Sagittal and coronal reformatted images obtained. Comparison: None Osseous structures demineralized consistent with patient's age. Minimal multilevel anterior endplate spurring. Superior endplate T11 demonstrates subacute to chronic appearing fracture with approximately 25% height loss. No spinal canal or foraminal stenosis. Sagittal and coronal reformatted images demonstrates normal thoracic alignment with minimal multilevel disc space narrowing. Visualized noncontrasted soft tissues demonstrates mildly scattered arteriosclerotic calcifications, minimal bilateral dependent atelectasis, 1.1 cm medial left lung base calcified granuloma, 1.2 cm subcarinal calcified node, and incompletely visualized right Port-A-Cath. CT abdomen/pelvis reported separately. Impression: 1. Subacute to chronic-appearing T11 superior endplate fracture as detailed. 2. Chronic findings including osteopenia, multilevel degenerative changes, and old granulomatous disease.
--- NOTE | 2023-01-06 08:57 | XRAY ---
Indication: Cramping. Abdomen pain. Multiple axial images obtained through the abdomen and pelvis without contrast. Comparison: January 09, 2022 Lung bases again demonstrate small left base calcified granuloma. No infiltrate or effusion. Heart is not enlarged. Noncontrasted stomach and bowel loops nonobstructed again with mild diffuse fecal stasis and scattered sigmoid diverticulosis. Liver now demonstrates diffuse hyperattenuation which can be seen with iron/copper deposition, glycogen storage diseases, and medications.. Left kidney demonstrates new nonobstructing punctate calculus. Stable 3.1 cm right renal cyst and cholecystectomy clips. No free fluid/air. Remaining pancreas, spleen, adrenal glands, kidneys, ureters, bladder, and uterus are unremarkable for noncontrast exam. There remains mild aortoiliac calcifications without AAA. Osseous structures again demonstrate osteopenia, minimal/mild degenerative changes throughout the visualized spine, mild dextroscoliosis, and mild bilateral hip degenerative arthropathy. New subacute to chronic appearing superior T11 endplate fracture. Impression: 1. New diffuse hyperdense liver. Finding commonly seen with iron/copper deposition, glycogen storage diseases, and medications. 2. New nonobstructing left renal punctate calculus. 3. New subacute to chronic appearing T11 endplate fracture. 4. Again diffuse fecal stasis, sigmoid diverticulosis, right renal cyst, arteriosclerotic disease, chronic bony findings, and old granulomatous disease.
== END 2023-01-05 20:33 | disposition home or self-care (01) ==
LOC: ED 16:44
DX: S22.088A Other fracture of T11-T12 vertebra, initial encounter for closed fracture (principal); W19.XXXA Unspecified fall, initial encounter; R29.6 Repeated falls; N39.0 Urinary tract infection, site not specified; E87.1 Hypo-osmolality and hyponatremia; R11.0 Nausea; R10.84 Generalized abdominal pain; I11.0 Hypertensive heart disease with heart failure; I50.9 Heart failure, unspecified; E78.5 Hyperlipidemia, unspecified; Z79.01 Long term (current) use of anticoagulants; Z79.899 Other long term (current) drug therapy
CPT/HCPCS: 36415; 72128; 74176; 80053; 81001; 82150; 83690; 85025; 87086; 96372; 99283; J0696

== ENCOUNTER 2023-01-12 12:04 | Emergency (ER) | payer MEDICARE, OTHER ==
[2023-01-12 12:27] VITALS: RESP 20; TEMP 97.2
--- NOTE | 2023-01-12 12:46 | ERPHSYRPT ---
- History of Present Illness Time Seen by Provider: 01/12/23 12:46 Historian: patient, family Exam Limitations: no limitations Patient Subjective Stated Complaint: Pt states "I am on keflex for a uti but my whole belly is hurting now and I had not had a bowel movment for about 10 days until yesterday. I am bloated and I am not sure what is going on." Triage Nursing Assessment: Pt presented alert and oriented X 3, skin pwd Pt ambulates with an upright steady gait, able to speak in clear full sentences. PT resting comfortably on the bed. Physician History: This is a 72-year-old white female patient Dr. Enrique who was seen here 1 week ago by me and diagnosed with urinary tract infection after an extensive work-up. Since that time she has not had a bowel movement until 2 days ago. She is having infraumbilical bilateral lower quadrant abdominal pain and she thinks she is distended. She was told by her primary care physician's office to come to the emergency room to be reevaluated. Patient denies chest pain. She denies shortness of breath. She has no vomiting and she has no diarrhea symptoms. She had a colonoscopy approximately 1 year ago per her . Patient has a history of hyperlipidemia, atrial fibrillation (on Eliquis) CHF, hypertension and peripheral neuropathy as well as cardiomyopathy. Timing/Duration: day(s) (7) Abdominal Pain Onset Location: periumbilical (And bilateral lower quadrants) Severity of Pain-Max: mild (To moderate) Severity of Pain-Current: mild (to moderate) Modifying Factors: Improves With: nothing Associated Symptoms: No chest pain, No fever/chills, No shortness of breath Previous symptoms: same symptoms as today, recently seen, recently treated Allergies/Adverse Reactions: No Known Drug Allergies Allergy (Verified 01/05/23 16:56) Home Medications: Pravastatin Sodium 40 mg PO DAILY 03/19/20 [History] Amiodarone HCl 200 mg [Cordarone 200 MG] 200 mg PO DAILY 10/26/21 [History] Isosorbide Mononitrate 30 mg [Imdur 30 MG] 30 mg PO DAILY 10/26/21 [History] Promethazine HCl 12.5 mg PO QID PRN PRN 10/26/21 [History] Apixaban [Eliquis 5 mg Tablet] 5 mg PO BID 01/09/22 [History] Famotidine 20 mg PO BID 01/09/22 [History] Cephalexin Mh 500 mg [Keflex 500 mg] 500 mg PO TID 01/12/23 [History] Hx Tetanus, Diphtheria Vaccination/Date Given: Yes Hx Influenza Vaccination/Date Given: No Hx Pneumococcal Vaccination/Date Given: No Immunizations Up to Date: Yes Travel Risk - International Travel Have you traveled outside of the country in past 3 weeks: No - Coronavirus Screening Are you exhibiting any of the following symptoms?: No Close contact with a COVID-19 positive Pt in past 14-21 Days: No - Vaccine Status Have you recieved a Covid-19 vaccination: Yes Mine Surveyor: 5gig - Vaccination Dates Date of 2cond Vaccination (if applicable): 2020 Dates if Unknown: unknown - Review of Systems Constitutional: No Symptoms Eyes: No Symptoms Ears, Nose, & Throat: No Symptoms Respiratory: No Symptoms Cardiac: No Symptoms Abdominal/Gastrointestinal: Abdominal Pain Genitourinary Symptoms: No Symptoms Musculoskeletal: No Symptoms Skin: No Symptoms Neurological: No Symptoms Psychological: No Symptoms Endocrine: No Symptoms Hematologic/Lymphatic: No Symptoms Immunological/Allergic: No Symptoms (bilat lq/infraumbilical) All Other Systems: Reviewed and Negative - Past Medical History Pertinent Past Medical History: Yes Neurological History: Peripheral Neuropathy ENT History: No Pertinent History Cardiac History: Arrhythmia, Congestive Heart Failure, Hypertension Respiratory History: CHF Endocrine Medical History: No Pertinent History Musculoskeletal History: Osteoporosis GI Medical History: Diverticulitis, Diverticulosis, Gallbladder Disease History: No Pertinent History Psycho-Social History: No Pertinent History Female Reproductive Disorders: Breast Cancer Other Medical History: NEUROPATHY IN THE L HAND. DX WITH IRON OVERLOAD IN THE BLOOD. SOB WITH SHORT ACTIVITY. SHE NOTES DIFFICULTY WITH SHORT TERM MEMORY. DENIES SEEING A NEUROLOGIST. SHE NOTES HEART ISSUES DUE TO PAST CHEMOTHERAPY. A- FIB. BREAST CA IN 1993, IN REMISSION. SEPSIS, KIDNEY INFECTIONS, L ANKLE FRACTURE X2. - Past Surgical History Past Surgical History: Yes Neuro Surgical History: No Pertinent History Cardiac: No Pertinent History Respiratory: No Pertinent History Gastrointestinal: Cholecystectomy Genitourinary: No Pertinent History Musculoskeletal: No Pertinent History Female Surgical History: No Pertinent History Other Surgical History: masectomy left, rotator cuff repain, reduction of right breast, open reduction of left ankle - Social History Smoking Status: Never smoker Exposure to second hand smoke: No Drug Use: none Patient Lives Alone: No - Nursing Vital Signs Nursing Vital Signs: Initial Vital Signs Temperature 97.2 F 01/12/23 12:20 Pulse Rate 67 01/12/23 12:20 Respiratory Rate 20 01/12/23 12:20 Blood Pressure 135/82 01/12/23 12:20 O2 Sat by Pulse Oximetry 98 01/12/23 12:20 Pain Scale Pain Intensity 4 - Physical Exam General Appearance: no apparent distress, alert, anxiety Eye Exam: PERRL/EOMI, eyes nml inspection Ears, Nose, Throat Exam: normal ENT inspection, moist mucous membranes Neck Exam: normal inspection, non-tender, supple, full range of motion Respiratory Exam: normal breath sounds, lungs clear, airway intact, No chest tenderness, No respiratory distress Cardiovascular Exam: regular rate/rhythm, normal heart sounds, normal peripheral pulses Gastrointestinal/Abdomen Exam: tenderness (infraumbilical), guarding Pelvic Exam: not done Rectal Exam: not done Back Exam: normal inspection, normal range of motion, No CVA tenderness, No vertebral tenderness Extremity Exam: normal inspection, normal range of motion, pelvis stable Neurologic Exam: alert, oriented x 3, cooperative, assistant professor surgical technology II-XII nml as tested, normal mood/affect, nml cerebellar function, nml station & gait, sensation nml Skin Exam: normal color, warm, dry Lymphatic Exam: No adenopathy SpO2 Interpretation: normal SpO2: 98 O2 Delivery: Room Air - Course Nursing assessment & vital signs reviewed: Yes Ordered Tests: Active Orders 24 hr Category Date Time Status IV Insertion STAT Care 01/12/23 13:06 Active ABDOMEN AND PELVIS W/0 CONTRAS [CT] Stat Exams 01/12/23 13:07 Completed AMYLASE Stat Lab 01/12/23 13:20 Completed CBC W DIFF Stat Lab 01/12/23 13:20 Completed CMP Stat Lab 01/12/23 13:20 Completed CULTURE,URINE Stat Lab 01/12/23 13:13 Received LIPASE Stat Lab 01/12/23 13:20 Completed UA W/RFX UR CULTURE Stat Lab 01/12/23 13:13 Completed Medication Summary Discontinued Medications Generic Name Dose Route Start Last Admin Trade Name Freq PRN Reason Stop Dose Admin Sodium Chloride 1,000 mls @ 999 mls/hr 01/12/23 13:06 01/12/23 14:27 Sodium Chloride 0.9% 1000 Ml IV 01/12/23 14:06 Infused .Q1H1M STA Infusion Sodium Chloride Confirm 01/12/23 13:11 Sodium Chloride 0.9% 1000 Ml Administered 01/12/23 13:12 Dose 1,000 mls @ ud .ROUTE .STK-MED ONE Morphine Sulfate 4 mg 01/12/23 13:06 01/12/23 13:31 Morphine Sulfate 4 Mg/Ml Injection IV 01/12/23 13:07 Not Given STAT ONE Morphine Sulfate Confirm 01/12/23 13:11 Morphine Sulfate 4 Mg/Ml Injection Administered 01/12/23 13:12 Dose 4 mg .ROUTE .STK-MED ONE Ondansetron HCl 4 mg 01/12/23 13:06 01/12/23 13:26 Ondansetron Hcl 4 Mg/2 Ml Vial IV 01/12/23 13:07 4 mg STAT ONE Administration Ondansetron HCl Confirm 01/12/23 13:11 Ondansetron Hcl 4 Mg/2 Ml Vial Administered 01/12/23 13:12 Dose 4 mg .ROUTE .STK-MED ONE Lab/Rad Data: Laboratory Result Diagrams 01/12/23 13:20 01/12/23 13:20 Laboratory Results 01/12/23 01/12/23 01/12/23 Range/Units 13:20 13:20 13:13 WBC 6.1 (4.0-10.5) x10^3/uL RBC 3.49 L (4.1-5.4) x10^6/uL Hgb 12.2 (12.0-16.0) g/dL Hct 37.3 (35-47) % MCV 106.9 H (78-100) fL MCH 35.0 H (26-32) pg MCHC 32.7 (32-36) g/dL RDW 13.9 (11.5-14.0) % Plt Count 237 (150-450) x10^3/uL MPV 8.9 (7.5-11.0) fL Gran % 64.8 (36.0-66.0) % Immature Gran % (Auto) 0.5 H (0.00-0.4) % Nucleat RBC Rel Count 0.0 (0.00-0.1) % Eos # (Auto) 0.06 (0-0.5) x10^3/uL Immature Gran # (Auto) 0.03 (0.00-0.03) x10^3u/L Absolute Lymphs (auto) 1.47 (1.0-4.6) x10^3/uL Absolute Monos (auto) 0.56 (0.0-1.3) x10^3/uL Absolute Nucleated RBC 0.00 (0.00-0.01) x10^3u/L Lymphocytes % 24.0 (24.0-44.0) % Monocytes % 9.2 (0.0-12.0) % Eosinophils % 1.0 (0.00-5.0) % Basophils % 0.5 (0.0-0.4) % Absolute Granulocytes 3.97 (1.4-6.9) x10^3/uL Basophils # 0.03 (0-0.4) x10^3/uL Sodium 133 L (137-145) mmol/L Potassium 4.7 (3.5-5.1) mmol/L Chloride 99 (98-107) mmol/L Carbon Dioxide 28 (22-30) mmol/L Anion Gap 10.5 (5-15) MEQ/L BUN 18 H (7-17) mg/dL Creatinine 0.94 (0.52-1.04) mg/dL Estimated GFR > 60.0 ML/MIN Glucose 116 H (74-106) mg/dL Calcium 8.8 (8.4-10.2) mg/dL Total Bilirubin 0.40 (0.2-1.3) mg/dL AST 48 H (14-36) U/L ALT 57 H (0-35) U/L Alkaline Phosphatase 122 (38-126) U/L Serum Total Protein 6.0 L (6.3-8.2) g/dL Albumin 3.4 L (3.5-5.0) g/dL Amylase 83 (30-110) U/L Lipase 55 (23-300) U/L Urine Color Yellow (Yellow) Urine Appearance Clear (Clear) Urine pH 6.5 (4.6-8.0) Ur Specific [place] 1.020 (1.005-1.030) Urine Protein Negative (Negative) Urine Glucose (UA) Negative (Negative) mg/dL Urine Ketones Negative (Negative) Urine Blood Negative (Negative) Urine Nitrite Negative (Negative) Urine Bilirubin Negative (Negative) Urine Urobilinogen 1.0 A (0.2) mg/dL Ur Leukocyte Esterase Small A (Negative) U Hyaline Cast (Auto) 3-5 A (0-2) /LPF Urine Microscopic RBC 0-2 (0-5) /HPF Urine Microscopic WBC 0-2 (0-5) /HPF Ur Epithelial Cells None Seen (None Seen) /HPF Urine Bacteria None Seen (None Seen) /HPF Urine Culture Reflexed YES (NO) - Progress Progress: improved, pain not gone completely Progress Note: 01/12/23 14:[address] scan of the abdomen pelvis without contrast was interpreted by the radiologist and I reviewed the impression. The patient has mild diffuse fecal stasis. The patient has worsening T11 superior endplate fracture without spinal cord or foraminal encroachment. Patient has hyperdense liver. There are other chronic findings noted. This patient's medical issue is 1 of moderate complexity. The level of complexity and the work-up performed is based on review of the patient's past medical history, review of the patient's medication list, review the patient's drug allergy list, history present illness and physical findings on examination. The work-up in this patient includes placement of an intravenous line, infusion of 1 L of normal saline solution, CT scan of the abdomen pelvis without contrast, amylase, lipase, CBC, CMP and urinalysis. I reviewed the report results of these completed studies. The amylase, lipase and CMP results are pending. I am going to culture the patient's urine and see if there actually is bacterial growth. I will not provide her with antibiotics at this point. Regarding her T11 superior endplate fracture, we will refer her back to her primary care provider who will then refer her to a back specialist. Counseled pt/family regarding: lab results, diagnosis, need for follow-up, rad results Medical Desision Making - Independent Historian Additional History obtained from: Spouse - Diagnostic Testing Diagnostic test were ordered, analyzed, and reviewed by me: Yes Radiological Interpretation: Reviewed by me, Teleradiologist Report - Risk of complications Low Risk: Low risk of morbidity from additional dx testing or treatment - Departure Departure Disposition: Home Clinical Impression: Lower abdominal pain, Thoracic spine fracture, Constipation Condition: Stable Critical Care Time: No Referrals: ALFONSO ENRIQUE [Primary Care Provider] - Follow up/PCP as directed Additional Instructions: Drink plenty of fluids. Use [id number] MiraLAX. Follow-up with Dr. Enrique at your scheduled appointment on 01/15/2023 at 2:15 PM for evaluation and possible referral to a back specialist if indicated for further evaluation and management.
[2023-01-12] MEDS ORDERED: Sodium Chloride 0.9% 1000 ML 1,000 ML IV STA (13:06)
[2023-01-12] MEDS ORDERED: MORPHINE SULFATE 4 MG INJ IV ONE (13:06)
[2023-01-12] MEDS ORDERED: Zofran 4 MG/2 ML VIAL IV ONE (13:06)
[2023-01-12] MEDS ORDERED: Sodium Chloride 0.9% 1000 ML 1,000 ML ONE (13:11)
[2023-01-12] MEDS ORDERED: Zofran 4 MG/2 ML VIAL ONE (13:11)
[2023-01-12] MEDS ORDERED: MORPHINE SULFATE 4 MG INJ ONE (13:11)
[2023-01-12 13:14] VITALS: BP 115/70; PULSE 88
[2023-01-12 13:19] VITALS: O2SAT 98
[2023-01-12 13:28] LABS: Absolute Neutrophil Ct (ANC) 3.97 x10^3/uL (1.4-6.9); BASOPHIL % 0.5 % (0.0-0.4); Basophil (Absolute #) 0.03 x10^3/uL (0-0.4); Eosinophil (Absolute #) 0.06 x10^3/uL (0-0.5); Hematocrit 37.3 % (35-47); Hemoglobin 12.2 g/dL (12.0-16.0); IMMATURE GRAN # 0.03 x10^3u/L (0.00-0.03); IMMATURE GRAN % 0.5 % (0.00-0.4); Lymphocyte (Absolute #) 1.47 x10^3/uL (1.0-4.6); Mean Cell Volume 106.9 fL (78-100); Mean Corpuscular Hgb Concent. 32.7 g/dL (32-36); Mean Platelet Volume 8.9 fL (7.5-11.0); Monocyte (Absolute #) 0.56 x10^3/uL (0.0-1.3); Monocytes % 9.2 % (0.0-12.0); Neutrophil % 64.8 % (36.0-66.0); Platelet Count 237 x10^3/uL (150-450); Red Blood Count 3.49 x10^6/uL (4.1-5.4); Red Cell Distribution Width 13.9 % (11.5-14.0); White Blood Count 6.1 x10^3/uL (4.0-10.5)
[2023-01-12 13:28] LABS: Appearance Clear (Clear); Bacteria None Seen /HPF (None Seen); Bilirubin Negative (Negative); Blood Negative (Negative); Epithelial Cells None Seen /HPF (None Seen); Glucose, Urine Negative (Negative); Ketones Negative (Negative); Leukocyte Esterase Small (Negative); Nitrite Negative (Negative); Ph 6.5 (4.6-8.0); Protein,Urine Dip Negative (Negative); RBC 0-2 /HPF (0-5); WBC 0-2 /HPF (0-5)
[2023-01-12 13:29] LABS: ADD URINE CULTURE? YES (NO)
--- NOTE | 2023-01-12 13:58 | XRAY ---
Indication: Abdomen pain. Constipation. Multiple contiguous axial images obtained through the abdomen and pelvis without contrast. Comparison: January 05, 2023 Lung bases remain clear again with incidental left base calcified granuloma. Heart is not enlarged. Noncontrasted stomach and bowel loops appear nonobstructed. Again mild diffuse fecal stasis greatest in ascending colon. Stable sigmoid diverticulosis, diffuse dense liver, nonobstructing left renal punctate calculus, right renal cyst, and cholecystectomy. No free fluid/air. Remaining liver, pancreas, spleen, adrenal glands, kidneys, ureters, bladder, and uterus are unremarkable for noncontrast exam. Stable mild aortoiliac calcifications without AAA. Osseous structures demonstrates worsening T11 superior endplate fracture with now approximately 50% height loss, previously 25%. No spinal canal or foraminal encroachment. Stable osteopenia, mild degenerative changes throughout the spine, dextroscoliosis, and bilateral hip degenerative arthropathy, Impression: 1. Mild diffuse fecal stasis less than before. 2. Worsening T11 superior endplate fracture again without spinal canal/foraminal encroachment.. 3. Again hyperdense liver commonly seen with iron/copper deposition, glycogen storage disease, and medications. 4. Chronic findings including sigmoid diverticulosis, right renal cyst, nonobstructing left renal punctate calculus, chronic bony findings, arteriosclerotic disease, and old granulomatous disease.
[2023-01-12 14:32] LABS: ALBUMIN 3.4 g/dL (3.5-5.0); ALKALINE PHOSPHATASE 122 U/L (38-126); AMYLASE 83 U/L (30-110); ANION GAP 10.5 MEQ/L (5-15); BLOOD UREA NITROGEN 18 mg/dL (7-17); CHLORIDE 99 mmol/L (98-107); Calcium 8.8 mg/dL (8.4-10.2); Carbon Dioxide 28 mmol/L (22-30); Creatinine 1 0.94 mg/dL (0.52-1.04); EST GLOMERULAR FILTRATION RATE > 60.0 ML/MIN; Glucose 116 mg/dL (74-106); LIPASE 55 U/L (23-300); Potassium 4.7 mmol/L (3.5-5.1); SGOT/AST 48 U/L (14-36); SGPT/ALT 57 U/L (0-35); SODIUM 133 mmol/L (137-145)
== END 2023-01-12 15:13 | disposition home or self-care (01) ==
LOC: ED 12:04
DX: R10.33 Periumbilical pain (principal); R10.31 Right lower quadrant pain; R10.32 Left lower quadrant pain; S22.089A Unspecified fracture of T11-T12 vertebra, initial encounter for closed fracture; K59.00 Constipation, unspecified; E78.5 Hyperlipidemia, unspecified; I11.0 Hypertensive heart disease with heart failure; I50.9 Heart failure, unspecified; Z79.01 Long term (current) use of anticoagulants; Z79.899 Other long term (current) drug therapy
CPT/HCPCS: 36000; 36415; 74176; 80053; 81001; 82150; 83690; 85025; 87086; 96374; 99284; J2270; J2405

== ENCOUNTER 2024-10-30 09:38 | Emergency (ER) | payer MEDICARE, OTHER ==
[2024-10-30 10:09] VITALS: PULSE 68; RESP 18; TEMP 96.9
--- NOTE | 2024-10-30 10:20 | ERPHSYRPT ---
- History of Present Illness Time Seen by Provider: 10/30/24 10:15 Source: patient, family Exam Limitations: no limitations Patient Subjective Stated Complaint: PT. STATES, "I FELL A COUPLE OF DAYS AGO AND HIT MY RIBS AND MY RIGHT SIDE HURTS I'M AFRAID I MAY HAVE BRUISED OR BROKE MY RIBS." Triage Nursing Assessment: PT. AMBULATES TO ROOM WITH CANE, SHE IS A&OX3, SKIN P/W/D, NO BRUISING NOTED TO RIGHT RIB AREA, BUT SHE IS TENDER, RESP. EVEN UNLABORED, ABLE TO MOVE ALL 4 EXT. Physician History: Patient is 74-year-old female with significant past medical history of osteoporosis who fell and hurt her right side of the posterior rib cage. Initially she did not have too much pain but since yesterday she started having more and more throbbing and stabbing pain so she came to the emergency room for further evaluation. She took three 200 mg ibuprofen and which did help her poor pain after an hour taking it. She denies any other symptoms including shortness of breath. Occurred: last week Reason for Fall: slipped, fell from standing pos Injuries/Pain Location: chest Loss of Consciousness: no loss of consciousness Quality: stabbing, throbbing Severity of Pain-Max: moderate Severity of Pain-Current: moderate Modifying Factors: Improves With: pain medication Associated Symptoms (Fall): denies symptoms Body Map: 1 - area of pain Allergies/Adverse Reactions: No Known Drug Allergies Allergy (Verified 01/05/23 16:56) Home Medications: Pravastatin Sodium 40 mg PO DAILY 03/19/20 [History] Amiodarone HCl 200 mg [Cordarone 200 MG] 200 mg PO DAILY 10/26/21 [History] Isosorbide Mononitrate 30 mg [Imdur 30 MG] 30 mg PO DAILY 10/26/21 [History] Promethazine HCl 12.5 mg PO QID PRN PRN 10/26/21 [History] Apixaban [Eliquis 5 mg Tablet] 5 mg PO BID 01/09/22 [History] Famotidine 20 mg PO BID 01/09/22 [History] Cephalexin Mh 500 mg [Keflex 500 mg] 500 mg PO TID 01/12/23 [History] Hx Tetanus, Diphtheria Vaccination/Date Given: Yes Hx Influenza Vaccination/Date Given: No Hx Pneumococcal Vaccination/Date Given: No Immunizations Up to Date: No Travel Risk - International Travel Have you traveled outside of the country in past 3 weeks: No - Emerging Infectious Disease Are you exhibiting symptoms associated with any current EIDs: No - Review of Systems Constitutional: No Fever, No Chills Eyes: No Symptoms Ears, Nose, & Throat: No Symptoms Respiratory: Other (right side rib cage pain), No Cough, No Dyspnea Cardiac: No Chest Pain, No Edema, No Syncope Abdominal/Gastrointestinal: No Abdominal Pain, No Nausea, No Vomiting, No Diarrhea Genitourinary Symptoms: No Dysuria Musculoskeletal: No Back Pain, No Neck Pain Skin: No Rash Neurological: No Dizziness, No Focal Weakness, No Sensory Changes Psychological: No Symptoms Endocrine: No Symptoms All Other Systems: Reviewed and Negative - Past Medical History Pertinent Past Medical History: Yes Neurological History: No Pertinent History ENT History: No Pertinent History Cardiac History: Other Respiratory History: No Pertinent History Endocrine Medical History: Other Musculoskeletal History: Osteoarthritis GI Medical History: Diverticulitis, Diverticulosis, Gallbladder Disease History: No Pertinent History Psycho-Social History: No Pertinent History Female Reproductive Disorders: Breast Cancer Other Medical History: BORDERLINE DM, ELEVATED LIVER ENZYME "FOR YEARS". HISTORY OF KIDNEY INFECTION. PATIENT REPORTS DECREASED ENDURANCE, POSSIBLY DUE TO HEART OR MUSCLE MASS LOSS. - Past Surgical History Past Surgical History: Yes Neuro Surgical History: No Pertinent History Cardiac: No Pertinent History Respiratory: No Pertinent History Gastrointestinal: Cholecystectomy Genitourinary: No Pertinent History Musculoskeletal: No Pertinent History Female Surgical History: No Pertinent History Other Surgical History: masectomy left, rotator cuff repain, reduction of right breast, open reduction of left ankle - Social History Smoking Status: Never smoker Exposure to second hand smoke: No Drug Use: none - Social Determinants of Health Will the patient participate in the screening: Declined to provide - Nursing Vital Signs Nursing Vital Signs: Initial Vital Signs Temperature 96.9 F 10/30/24 09:39 Pulse Rate 68 10/30/24 09:39 Respiratory Rate 18 10/30/24 09:39 Blood Pressure 143/76 10/30/24 09:39 O2 Sat by Pulse Oximetry 99 10/30/24 09:39 Pain Scale Pain Intensity 2 - Alena Coma Score Best Eye Response ([place]): (4) open spontaneously Best Verbal Response (Alena): (5) oriented Best Motor Response ([place]): (6) obeys commands [place] Total: 15 - Physical Exam General Appearance: no apparent distress, alert Head Injury: no evidence of injury Eye Exam: PERRL/EOMI ENT Exam: airway nml Neck Exam: normal inspection, No tenderness Respiratory/Chest Exam: normal breath sounds, rib tenderness (right side), No chest tenderness, No respiratory distress Cardiovascular Exam: normal heart sounds, regular rate/rhythm Gastrointestinal Exam: soft, No tenderness, No distention, No guarding, No ecchymosis Back Exam: normal inspection, No vertebral tenderness Extremity Exam: normal inspection, normal range of motion, pelvis stable, No deformities Neurologic Exam: alert, oriented x 3, cooperative, sensation nml, No motor deficits Skin Exam: normal color, warm, dry SpO2: 97 - Course Nursing assessment & vital signs reviewed: Yes - Radiology Exams Chest X-ray Interpretation: Interpreted by me, Reviewed by me, Non-displaced Fracture (right 8th rib, posterior) Ribs X-ray Interpretation: Interpreted by me, Reviewed by me Ordered Tests: Active Orders 24 hr Category Date Time Status CHEST 2 VIEWS (PA AND LAT) Stat Exams 10/30/24 10:05 Taken RIBS UNILATERAL Stat Exams 10/30/24 10:05 Taken - Progress Progress: unchanged, pain not gone completely Counseled pt/family regarding: diagnosis, need for follow-up, rad results Medical Desision Making - Independent Historian Additional History obtained from: Spouse - Diagnostic Testing Diagnostic test were ordered, analyzed, and reviewed by me: Yes Radiological Interpretation: Interpreted by me, Reviewed by me - Risk of complications Low Risk: Low risk of morbidity from additional dx testing or treatment - Departure Departure Disposition: Home Clinical Impression: Rib fracture Qualifiers: Encounter type: initial encounter Rib fracture type: single rib Fracture type: closed Laterality: right Qualified Code(s): S22.31XA - Fracture of one rib, right side, initial encounter for closed fracture Osteopenia Qualifiers: Osteopenia location: multiple sites Qualified Code(s): M85.89 - Other specified disorders of bone density and structure, multiple sites Condition: Stable Critical Care Time: No Referrals: ALFONSO SCHNEIDER [Primary Care Provider, [facility]] - Follow up/PCP as directed Instructions: Rib Fracture (DC), Bruised Rib, Osteoporosis and osteopenia (low bone mass) Additional Instructions: Discharge/Care Plan DENVER MERINO was seen on 10/30/24 in the Emergency Room. The patient was counseled regarding Diagnosis,Lab results, Imaging studies, need for follow up and when to return to the Emergency Room. Prescriptions given: Discharge Note I have spoken with the patient and/or caregivers. I have explained the patient's condition, diagnosis and treatment plan based on the information available to me at this time. I have answered the patient's and/or caregiver's questions and addressed any concerns. The patient and/or caregivers have as good understanding of the patient's diagnosis, condition and treatment plan as can be expected at this point. The vital signs have been stable. The patient's condition is stable and appropriate for discharge from the emergency department. The patient will pursue further outpatient evaluation with the primary care physician or other designated or consulting physician as outlined in the discharge instructions. The patient and/or caregivers are agreeable to this plan of care and follow-up instructions have been explained in detail. The patient and/or caregivers have received these instruction. The patient/and or caregivers are aware that any significant change in condition or worsening of symptoms should prompt an immediate return to this or the closest emergency department or call 911. DENVER MERINO was seen on 10/30/24 n the Emergency Room. At that time you were treated for an emergent condition, during your visit Laboratory, Radiology and/or other procedures may have been ordered. It is very important that you follow-up with your Primary Care Physician ALFONSO SCHNEIDER within the next 24-48 hours to review your Emergency Room visit and the final results of testing that was ordered. Some test results such as Urine Cultures, Blood Cultures, and other cultures if ordered will not be finalized for 24-48 hours. If you do not have a Primary Care Provider please call the medical records department at [phone] ext [phone] to obtain a copy of your results or you may sign into our patient portal to obtain these results by visiting us @ [email or web address] and completing the following steps: 1. Click on the Patient Portal link 2. Click the Patient Self Enrollment Link to complete the enrollment form and entering your 3. Once the enrollment form is completed you will receive an email with a temporary ID and password at the email address you provided. 4. Next choose a user name and password. Your user name must be at least 4 characters long and your password must be at least 4 characters long. 5. Choose a security question from the list and provide your answer to the question. If you already have signed into the Health Portal you may access your Health Care Information 05/01 by the following steps: 1. Login to our website @ [email or web address] 2. Enter your original user name and password. FAQS The [facility] Health Portal is an online tool that contains your Lab Results, Radiology Reports, Visit History, Discharge Instructions and Health Summary Lab and Radiology Results will not be available for 72 hours on the portal. The Portal is a secure site, passwords are encryted and URLs are re-written so they cannot be copied and pasted. You and authorized family members are the only ones who can access your Portal. Also there is a timeout feature that protects your information if you leave the Portal page open. If you have technical difficulty please use the Contact Us link on the page this will allow you to submit any questions you have regarding the Portal or you may contact the Medical Record Department at [phone] ext [phone]. Prescriptions: Lidocaine [Lidoderm] 1 each TP DAILY #30 patch
[2024-10-30] MEDS: Lidoderm Patch 5% TOP ONE (11:08)
[2024-10-30 11:11] VITALS: BP 126/80; O2SAT 94
--- NOTE | 2024-10-30 19:27 | XRAY ---
Indication: Right chest pain following fall 4 days ago. Comparison: September 29, 2022 PA/lateral chest again demonstrates COPD with bibasilar subsegmental atelectasis/scarring. No focal infiltrate, consolidation, large effusion, or pneumothorax. Heart not enlarged again with tortuous descending aorta and right Port-A-Cath. Bony thorax demonstrates new remote-appearing T11 compression fracture. Elsewhere osteopenia and mild degenerative changes. Impression: Nonacute chest with chronic features.
--- NOTE | 2024-10-30 19:29 | XRAY ---
Indication: Pain following fall 4 days ago. Comparison: None 2 view right ribs demonstrates nondisplaced 10/19/8/9 rib fractures of uncertain chronicity. No pneumothorax/hemothorax. Elsewhere osteopenia, right base subsegmental atelectasis/scarring, remote T11 compression fracture, right Port-A-Cath, and mild scattered vascular calcifications.
== END 2024-10-30 11:20 | disposition home or self-care (01) ==
LOC: ED 09:38
DX: S22.31XA Fracture of one rib, right side, initial encounter for closed fracture (principal); W19.XXXA Unspecified fall, initial encounter; M85.89 Other specified disorders of bone density and structure, multiple sites; Z79.01 Long term (current) use of anticoagulants; Z79.899 Other long term (current) drug therapy
CPT/HCPCS: 71046; 71100; 99283; A9270-GY

== ENCOUNTER 2025-04-30 17:09 | Emergency (ER) | payer MEDICARE, OTHER ==
[2025-04-30 17:20] VITALS: TEMP 97.7
--- NOTE | 2025-04-30 17:26 | ERPHSYRPT ---
- History of Present Illness Historian: patient Exam Limitations: no limitations Timing/Duration: yesterday Abdominal Pain Onset Location: generalized abdomen Severity of Pain-Max: mild Severity of Pain-Current: mild Associated Symptoms: diarrhea, vomiting Hx Tetanus, Diphtheria Vaccination/Date Given: Yes Hx Influenza Vaccination/Date Given: No Hx Pneumococcal Vaccination/Date Given: No <CLARKE GRACE - Last Filed: 04/30/25 19:06> <EULOGIO SALDANA - Last Filed: 04/30/25 22:11> - History of Present Illness Time Seen by Provider: 04/30/25 17:12 Physician History: 75-year-old female presents to the emergency room with nausea vomiting diarrhea has been ongoing for the past day and a half she reports she is on active chemoradiation she is followed by an oncologist at [place] Dr. Watson patient denies any blood in diarrhea she denies any shortness of breath or chest pain denies any fevers denies any sick contacts denies any recent travel or antibiotic use patient reports her last chemo was on Thursday she is getting that for rectal cancer 30 years ago she breast cancer with mastectomy now in ED for further eval (CLARKE GRACE) Allergies/Adverse Reactions: No Known Drug Allergies Allergy (Verified 01/05/23 16:56) Home Medications: Amiodarone HCl 200 mg [Cordarone 200 MG] 200 mg PO DAILY 10/26/21 [History] Hydrocodone/Acetaminophen [Hydrocodone-Acetamin 5-325 mg] 1 tab PO Q8HPRN PRN MDD 4 04/30/25 [History] Ondansetron [Ondansetron Odt ] 1 tab SL TID 04/30/25 [History] Prochlorperazine Maleate 10 mg PO Q8H PRN PRN 04/30/25 [History] Travel Risk - Emerging Infectious Disease Are you exhibiting symptoms associated with any current EIDs: No <CLARKE GRACE - Last Filed: 04/30/25 19:06> - Review of Systems Constitutional: No Fever, No Chills Eyes: No Symptoms Ears, Nose, & Throat: No Symptoms Respiratory: No Cough, No Dyspnea Cardiac: No Chest Pain, No Edema, No Syncope Abdominal/Gastrointestinal: Abdominal Pain, Nausea, Vomiting, Diarrhea Genitourinary Symptoms: No Dysuria Musculoskeletal: No Back Pain, No Neck Pain Skin: No Rash Neurological: No Dizziness, No Focal Weakness, No Sensory Changes Psychological: No Symptoms Endocrine: No Symptoms All Other Systems: Reviewed and Negative <CLARKE GRACE - Last Filed: 04/30/25 19:06> - Past Medical History Pertinent Past Medical History: Yes Neurological History: No Pertinent History ENT History: No Pertinent History Cardiac History: Other Respiratory History: No Pertinent History Endocrine Medical History: Other Musculoskeletal History: Osteoarthritis GI Medical History: Diverticulitis, Diverticulosis, Gallbladder Disease History: No Pertinent History Psycho-Social History: No Pertinent History Female Reproductive Disorders: Breast Cancer Other Medical History: BORDERLINE DM, ELEVATED LIVER ENZYME "FOR YEARS". HISTORY OF KIDNEY INFECTION. PATIENT REPORTS DECREASED ENDURANCE, POSSIBLY DUE TO HEART OR MUSCLE MASS LOSS. - Past Surgical History Past Surgical History: Yes Neuro Surgical History: No Pertinent History Cardiac: No Pertinent History Respiratory: No Pertinent History Gastrointestinal: Cholecystectomy Genitourinary: No Pertinent History Musculoskeletal: No Pertinent History Female Surgical History: No Pertinent History Other Surgical History: masectomy left, rotator cuff repain, reduction of right breast, open reduction of left ankle - Social History Smoking Status: Never smoker Exposure to second hand smoke: No Drug Use: none - Social Determinants of Health Will the patient participate in the screening: Declined to provide <CLARKE GRACE - Last Filed: 04/30/25 19:06> - Physical Exam General Appearance: no apparent distress, alert Eye Exam: PERRL/EOMI, eyes nml inspection Ears, Nose, Throat Exam: normal ENT inspection, pharynx normal, moist mucous membranes Neck Exam: normal inspection, non-tender, supple, full range of motion Respiratory Exam: normal breath sounds, lungs clear, No respiratory distress Cardiovascular Exam: normal heart sounds, irregular, other (port on right chest ) Gastrointestinal/Abdomen Exam: soft, No tenderness, No mass Back Exam: normal inspection, normal range of motion, No CVA tenderness, No vertebral tenderness Extremity Exam: normal inspection, normal range of motion, pelvis stable Neurologic Exam: alert, oriented x 3, cooperative, normal mood/affect, nml cerebellar function, sensation nml, No motor deficits Skin Exam: normal color, warm, dry SpO2: 99 <CLARKE GRACE - Last Filed: 04/30/25 19:06> - Nursing Vital Signs Nursing Vital Signs: Initial Vital Signs Temperature 97.7 F 04/30/25 17:09 Pulse Rate 86 04/30/25 17:09 Respiratory Rate 18 04/30/25 17:09 Blood Pressure 132/73 04/30/25 17:09 O2 Sat by Pulse Oximetry 99 04/30/25 17:09 Pain Scale Pain Intensity 4 Ordered Tests: Active Orders 24 hr Category Date Time Status IV Insertion STAT Care 04/30/25 17:21 Active Isolation, Initiate & Maintain Q12H Care 04/30/25 18:20 Active ABDOMEN AND PELVIS W CONTRAST [CT] Stat Exams 04/30/25 17:21 Completed CBC W DIFF Stat Lab 04/30/25 17:30 Completed CMP Stat Lab 04/30/25 17:30 Completed LIPASE Stat Lab 04/30/25 17:30 Completed Lactic Acid Stat Lab 04/30/25 18:10 Completed Manual Differential NC Stat Lab 04/30/25 17:30 Completed UA W/RFX UR CULTURE Stat Lab 04/30/25 17:21 Ordered Transfer Order Routine Transfer 04/30/25 Ordered Medication Summary Discontinued Medications Generic Name Dose Route Start Last Admin Trade Name Freq PRN Reason Stop Dose Admin Amiodarone HCl 200 mg 04/30/25 18:53 04/30/25 19:58 Amiodarone Hcl 200 Mg Tab PO 04/30/25 18:54 200 mg DAILY STA Administration Droperidol 1.25 mg 04/30/25 20:40 04/30/25 20:48 Droperidol 5 Mg/2 Ml Vial IV 04/30/25 20:41 1.25 mg STAT ONE Administration Droperidol Confirm 04/30/25 20:46 Droperidol 5 Mg/2 Ml Vial Administered 04/30/25 20:47 Dose 5 mg .ROUTE .STK-MED ONE Famotidine 20 mg 04/30/25 17:21 04/30/25 17:42 Famotidine 20 Mg/1 Vial IV 04/30/25 17:22 20 mg STAT ONE Administration Famotidine Confirm 04/30/25 17:39 Famotidine 20 Mg/1 Vial Administered 04/30/25 17:40 Dose 20 mg IV .STK-MED ONE Sodium Chloride 1,000 mls @ 999 mls/hr 04/30/25 17:21 04/30/25 18:45 Sodium Chloride 0.9% 1000 Ml IV 04/30/25 18:21 Infused .Q1H1M STA Infusion Sodium Chloride Confirm 04/30/25 17:39 Sodium Chloride 0.9% 1000 Ml Administered 04/30/25 17:40 Dose 1,000 mls @ ud .ROUTE .STK-MED ONE Sodium Chloride 1,000 mls @ 999 mls/hr 04/30/25 20:37 04/30/25 20:47 Sodium Chloride 0.9% 1000 Ml IV 04/30/25 21:37 999 mls/hr .Q1H1M STA Administration Sodium Chloride Confirm 04/30/25 20:46 Sodium Chloride 0.9% 1000 Ml Administered 04/30/25 20:47 Dose 1,000 mls @ ud .ROUTE .STK-MED ONE Morphine Sulfate 4 mg 04/30/25 18:26 04/30/25 19:01 Morphine Sulfate 4 Mg/Ml Injection IV 04/30/25 18:27 4 mg STAT ONE Administration Morphine Sulfate Confirm 04/30/25 19:00 Morphine Sulfate 4 Mg/Ml Injection Administered 04/30/25 19:01 Dose 4 mg .ROUTE .STK-MED ONE Ondansetron HCl 4 mg 04/30/25 17:21 04/30/25 17:42 Ondansetron Hcl 4 Mg/2 Ml Vial IV 04/30/25 17:22 4 mg STAT ONE Administration Ondansetron HCl Confirm 04/30/25 17:39 Ondansetron Hcl 4 Mg/2 Ml Vial Administered 04/30/25 17:40 Dose 4 mg .ROUTE .STK-MED ONE Ondansetron HCl 4 mg 04/30/25 20:40 04/30/25 20:50 Ondansetron Hcl 4 Mg/2 Ml Vial IV 04/30/25 20:41 4 mg STAT ONE Administration Ondansetron HCl Confirm 04/30/25 20:46 Ondansetron Hcl 4 Mg/2 Ml Vial Administered 04/30/25 20:47 Dose 4 mg .ROUTE .STK-MED ONE Lab/Rad Data: Laboratory Result Diagrams 04/30/25 17:30 04/30/25 17:30 Laboratory Results 04/30/25 04/30/25 04/30/25 Range/Units 18:10 17:30 17:30 WBC (3.98-10.04) x10^3/uL RBC (3.93-5.22) x10^6/uL Hgb (11.2-15.7) g/dL Hct (34.1-44.9) % MCV (79.4-94.8) fL MCH (25.6-32.2) pg MCHC (32.2-35.5) g/dL RDW (11.7-14.4) % Plt Count (182-369) x10^3/uL MPV (9.4-12.3) fL Segmented Neutrophils (34.0-71.1) % Band Neutrophils (0.0-2.0) % Lymphocytes (Manual) (19.3-51.7) % Monocytes (Manual) (4.7-12.5) % Eosinophils (Manual) (0.7-5.8) % Platelet Estimate (NORMAL) RBC Morphology Poikilocytosis Anisocytosis Sodium 128 L (135-145) mmol/L Potassium 4.0 (3.5-5.1) mmol/L Chloride 99 (98-107) mmol/L Carbon Dioxide 22 (22-30) mmol/L Anion Gap 11.2 (5-15) MEQ/L BUN 20 H (7-17) mg/dL Creatinine 0.89 (0.52-1.04) mg/dL Estimated GFR 66.7 ML/MIN Glucose 106 (74-106) mg/dL Lactic Acid 0.9 (0.4-2.0) Calcium 8.3 L (8.4-10.2) mg/dL Total Bilirubin 0.70 (0.2-1.3) mg/dL AST 32 (14-36) U/L ALT 18 (0-35) U/L Alkaline Phosphatase 96 (38-126) U/L Serum Total Protein 6.1 L (6.3-8.2) g/dL Albumin 3.4 L (3.5-5.0) g/dL Lipase 25 (23-300) U/L Influenza Type A Ag NEGATIVE (NEGATIVE) Influenza Type B Ag NEGATIVE (NEGATIVE) RSV (PCR) NEGATIVE (NEGATIVE) SARS-CoV-2 (PCR) NEGATIVE (NEGATIVE) 04/30/25 Range/Units 17:30 WBC 1.3 L* (3.98-10.04) x10^3/uL RBC 2.22 L (3.93-5.22) x10^6/uL Hgb 7.7 L (11.2-15.7) g/dL Hct 23.7 L (34.1-44.9) % MCV 106.8 H (79.4-94.8) fL MCH 34.7 H (25.6-32.2) pg MCHC 32.5 (32.2-35.5) g/dL RDW 17.5 H (11.7-14.4) % Plt Count 126 L (182-369) x10^3/uL MPV 9.0 L (9.4-12.3) fL Segmented Neutrophils 76 H (34.0-71.1) % Band Neutrophils 1 (0.0-2.0) % Lymphocytes (Manual) 11 L (19.3-51.7) % Monocytes (Manual) 8 (4.7-12.5) % Eosinophils (Manual) 4 (0.7-5.8) % Platelet Estimate NORMAL (NORMAL) RBC Morphology ABNORMAL Poikilocytosis 2+ Anisocytosis 3+ Sodium (135-145) mmol/L Potassium (3.5-5.1) mmol/L Chloride (98-107) mmol/L Carbon Dioxide (22-30) mmol/L Anion Gap (5-15) MEQ/L BUN (7-17) mg/dL Creatinine (0.52-1.04) mg/dL Estimated GFR ML/MIN Glucose (74-106) mg/dL Lactic Acid (0.4-2.0) Calcium (8.4-10.2) mg/dL Total Bilirubin (0.2-1.3) mg/dL AST (14-36) U/L ALT (0-35) U/L Alkaline Phosphatase (38-126) U/L Serum Total Protein (6.3-8.2) g/dL Albumin (3.5-5.0) g/dL Lipase (23-300) U/L Influenza Type A Ag (NEGATIVE) Influenza Type B Ag (NEGATIVE) RSV (PCR) (NEGATIVE) SARS-CoV-2 (PCR) (NEGATIVE) <CLARKE GRACE - Last Filed: 04/30/25 19:06> <EULOGIO SALDANA - Last Filed: 04/30/25 22:11> - Progress Progress Note: 04/30/25 18:35 Patient has lymphopenia and was put on precautions with negative isolation room patient was also has hyponatremia will be given IV fluids. Is given Zofran Pepcid and some pain control pending CT imaging 04/30/25 19:06 Case has been signed out to Dr. saldana pending results (CLARKE GRACE) 04/30/25 22:09 Patient was turned over to me pending CT results as well as response to fluids and antiemetic medications. Patient received 1 L bolus and requested another. Patient received a total 2 L normal saline. Patient was still feeling nauseous. At that point time she received an additional Zofran and Inapsine. On follow- up evaluation patient states he was feeling significantly better. I discussed her CT findings which showed some inflammatory changes which is suspect most likely secondary to her treatment related chemotherapy induced symptoms. Otherwise most of the findings are chronic. CT noted small blue loops of maximal diameter 3.6 that nondilated mildly thickened small bowel which may represent a slight inflammatory change or just transient peristalsis the other consideration was of the chemotherapy treatment. Had discussion of the patient is to follow-up with her oncologist has antiemetics at home as she is feeling significantly better after treatment. (EULOGIO SALDANA) <CLARKE GRACE - Last Filed: 04/30/25 19:06> - Departure Critical Care Time: No <EULOGIO SALDANA - Last Filed: 04/30/25 22:11> - Departure Clinical Impression: Lymphopenia, Hyponatremia Anemia Qualifiers: Anemia type: unspecified type Qualified Code(s): D64.9 - Anemia, unspecified Condition: Stable Referrals: ALFONSO SCHNEIDER [Primary Care Provider, [facility]] - Follow up/PCP as directed Additional Instructions: Discharge/Care Plan DENVER MERINO was seen on 04/30/25 in the Emergency Room. The patient was counseled regarding Diagnosis,Lab results, Imaging studies, need for follow up and when to return to the Emergency Room. Prescriptions given: Discharge Note I have spoken with the patient and/or caregivers. I have explained the patient's condition, diagnosis and treatment plan based on the information available to me at this time. I have answered the patient's and/or caregiver's questions and addressed any concerns. The patient and/or caregivers have as good understanding of the patient's diagnosis, condition and treatment plan as can be expected at this point. The vital signs have been stable. The patient's condition is stable and appropriate for discharge from the emergency department. The patient will pursue further outpatient evaluation with the primary care physician or other designated or consulting physician as outlined in the discharge instructions. The patient and/or caregivers are agreeable to this plan of care and follow-up instructions have been explained in detail. The patient and/or caregivers have received these instruction. The patient/and or caregivers are aware that any significant change in condition or worsening of symptoms should prompt an immediate return to this or the closest emergency department or call 911. Follow-up with your oncologist first thing in the morning Return to the ED immediately if symptoms return, fever, worsening, or further concerns Drink plenty of fluids Continue her current medications as directed
[2025-04-30] MEDS ORDERED: Pepcid 20 MG VIAL IV ONE (17:39)
[2025-04-30] MEDS ORDERED: Zofran 4 MG/2 ML VIAL ONE ×2 (17:39→20:46)
[2025-04-30 17:41] LABS: Hematocrit 23.7 % (34.1-44.9); Hemoglobin 7.7 g/dL (11.2-15.7); Mean Corpuscular Hemoglobin 34.7 pg (25.6-32.2); Mean Corpuscular Hgb Concent. 32.5 g/dL (32.2-35.5); Platelet Count 126 x10^3/uL (182-369); Red Blood Count 2.22 x10^6/uL (3.93-5.22)
[2025-04-30] MEDS: Pepcid 20 MG VIAL IV ONE (17:42)
[2025-04-30] MEDS: Zofran 4 MG/2 ML VIAL IV ONE ×2 (17:42→20:50)
[2025-04-30 17:49] LABS: White Blood Count 1.3 x10^3/uL (3.98-10.04)
[2025-04-30 17:54] LABS: Calcium 8.3 mg/dL (8.4-10.2); Carbon Dioxide 22.0 mmol/L (22-30); Creatinine 1 0.89 mg/dL (0.52-1.04); EST GLOMERULAR FILTRATION RATE 66.7 ML/MIN; Glucose 106.0 mg/dL (74-106); Potassium 4.0 mmol/L (3.5-5.1); SGOT/AST 32.0 U/L (14-36); SGPT/ALT 18.0 U/L (0-35); Total Protein 6.1 g/dL (6.3-8.2)
[2025-04-30 18:17] LABS: INFLUENZA A NEGATIVE (NEGATIVE); INFLUENZA B NEGATIVE (NEGATIVE); RESPIRATORY SYNCTIAL VIRUS NEGATIVE (NEGATIVE); SARS-CoV-2 Xpert Express NEGATIVE (NEGATIVE)
[2025-04-30] MEDS ORDERED: MORPHINE SULFATE 4 MG INJ ONE (19:00)
[2025-04-30] MEDS: MORPHINE SULFATE 4 MG INJ IV ONE (19:01)
[2025-04-30] MEDS: Cordarone 200 MG PO STA (19:58)
[2025-04-30 20:08] LABS: BAND 1 % (0.0-2.0); Total Cells Counted 100
[2025-04-30 20:09] LABS: Poikilocytosis 2+
--- NOTE | 2025-04-30 20:34 | XRAY ---
CLINICAL HISTORY: N/V/D hx of rectal cancer on chemo COMPARISON: 01/12/2023 CT TECHNIQUE: CT of the abdomen and pelvis was performed with contrast, with the following protocol: axial images with, and reconstructed coronal and sagittal images. 80 cc isovue intravenous contrast was administered. One of the following dose reduction techniques was utilized for this exam: Automated exposure control, adjustment of the mA and/or kV according to patient size, and use of iterative reconstruction. DLP: 290.38 mGy.cm FINDINGS: Abdomen: Liver: Normal in size, shape, and density. No focal lesions, cysts, or masses were identified. Hepatic vasculature and biliary ducts are unremarkable. Gallbladder and Biliary System: The gallbladder is surgically absent. The common bile duct is normal in caliber. Pancreas: Pancreatic head, body, and tail are visualized and appear normal in size and density. No pancreatic masses or calcifications were noted. The pancreatic duct is not dilated. Spleen: Normal in size, shape, and density. Few small 1 measures 8.7 x 6.7 mm in size. It was note appreciated in the previous noncontrast CT. Ill-defined hypodensities are appreciated in the lower pole of the spleen as per image #27/101 axial and coronal 87/131 Appendix: The appendix is not well appreciated , however there is no significant evidence of fat stranding in the right iliac fossa. Kidneys and Adrenal Glands: Both kidneys are normal in size, shape, and position. Cortical thickness is within normal limits. No hydronephrosis. An exophytic cortical cyst is appreciated at the lower pole of the right kidney measuring 3.8 x 3.8 cm in size. A tiny faint calcific focus is appreciated at the lower pole of the right kidney which may suggest calcification versus a tiny concretion. Adrenal glands are unremarkable with no evidence of masses or hyperplasia. Pelvis: Urinary Bladder: The urinary bladder is partially filled however appearing to have prominent birch with a wall thickness of 6 mm. No intraluminal lesions identified. Uterus: Normal in size and contour. No masses or abnormal thickening. Ovaries: Not well visualized but no gross abnormalities noted. Vagina: Normal in contour and wall thickness. Cervix: No evidence of mass or abnormal thickening. Peritoneal and Retroperitoneal Structures: No free fluid or abnormal fluid collections were identified within the abdomen or pelvis. No lymphadenopathy was noted. Bowel: Extensive sigmoid diverticulosis is appreciated without any signs of inflammation. Some of the small bowel loops in the left Enzo abdomen are dilated and fluid-filled with a maximum diameter of 3.6 cm till a bowel segment where mild bowel wall thickness is appreciated as per the image #65/101 axial and 108/171 sagittal image. Mild fat stranding and increased mesenteric vascularity is appreciated in the abdomen predominantly in the right lower abdomen. The visualized large bowel loops are normal in caliber and appearance. Bones and Soft Tissues: Pelvic bones and soft tissues are unremarkable. Compression fracture of T11 vertebral body appreciated. Invervlal preogression. Generalized reduced bone density is seen. Atelectatic changes are appreciated in the bilateral visualized lung munoz. A calcified granuloma measuring 9.2 mm is again appreciated in the medial basal segment of the left lower lobe. IMPRESSION: 1. Dilated, fluid-filled small bowel loops with a maximum diameter of 3.6 cm with a nondilated, mildly thickened small-bowel segment, which may represent a site of inflammatory change/ due to transient peristalsis. The differentials include small bowel enteritis, which may be infectious, inflammatory, or treatment-related (e.g., chemotherapy-induced mucositis/enteritis). New. 2. Interval progression of compression fracture of T11 vertebral body. 3. Few splenic hypodensities, not well-appreciated in the previous noncontrast study. 4. Interval new finding of prominent urinary bladder birch. Clinical and lab evaluation suggested rule out cystitis. 5. The rest of the stable findings are as detailed above. Electronically Signed by: Tone Johnson MD. (04/30/2025 20:33:36 EST)
[2025-04-30] MEDS ORDERED: Inapsine 5 MG/2 ML ONE (20:46)
[2025-04-30] MEDS: Inapsine 5 MG/2 ML IV ONE (20:48)
[2025-04-30 22:17] VITALS: BP 136/80; PULSE 80; RESP 17; O2SAT 95
== END 2025-04-30 22:28 | disposition home or self-care (01) ==
LOC: ED 17:09
DX: D72.810 Lymphocytopenia (principal); E87.1 Hypo-osmolality and hyponatremia; D64.9 Anemia, unspecified; R11.2 Nausea with vomiting, unspecified; R19.7 Diarrhea, unspecified; Z79.891 Long term (current) use of opiate analgesic; Z79.899 Other long term (current) drug therapy